=== PATIENT | male | born 1980 | race African-American/Black ===

== ENCOUNTER 2020-08-27 18:22 | Inpatient (IN) ==
[2020-08-27] MEDS ORDERED: HYDROmorphone 2 MG/1 ML VIAL IV STA (19:39)
[2020-08-27] MEDS ORDERED: SODIUM CHLORIDE 0.9% 1,000 ML IV STA (19:45)
[2020-08-27] MEDS ORDERED: ONDANSETRON 4 MG/2 ML VIAL IV STA (19:45)
[2020-08-27] MEDS ORDERED: hydrALAZINE 20 MG/1 ML VIAL IV STA (19:59)
[2020-08-27 20:03] LABS: Basophils % 0.3 % (0.0-0.8); Eosinophils # 0.1 10*3/uL (0.0-0.87); Eosinophils % 0.4 % (0.00-10.9); Hematocrit 40.3 VOL% (42.0-52.0); Immature Granulocytes % 0.5 %; Immature Granulocytes Absolute 0.08 #; Lymphocytes % 13.5 % (21.2-54.2); Mean Corpuscular HGB Conc 32.3 GM/DL (32-36); Mean Corpuscular Volume 82.9 FL (87-102); Mean Platelet Volume 10.4 FL (9.6-12.0); Monocytes % 8.1 % (1.7-12.7); Neutrophils % 77.2 % (38.7-73.9); Platelet Count 272 T/CUMM (130-400); Red Blood Count 4.86 MC/CUMM (3.8-5.5); White Blood Count 14.8 T/CUMM (4-12)
[2020-08-27 20:10] LABS: Calcium 9.3 MG/DL (8.5-10.1); Osmolality,Calculated 271.4 MOS/KG (273-304); Potassium 3.9 MMOL/L (3.5-5.1)
[2020-08-27] MEDS: CLINDAMYCIN INJ 600 MG/50 ML PREMIX IV SCH (20:16)
[2020-08-27] MEDS ORDERED: NICOTINE 21 MG/24 HR PATCH TRANSDERM PRN (20:40)
[2020-08-27] MEDS ORDERED: ONDANSETRON 4 MG/2 ML VIAL IV PRN (20:40)
[2020-08-27] MEDS ORDERED: hydrALAZINE 20 MG/1 ML VIAL IV PRN (20:40)
[2020-08-27] MEDS ORDERED: guaiFENesin/DM ER 600-30 MG TABLET PO PRN (20:40)
[2020-08-27] MEDS ORDERED: ACETAMINOPHEN 325 MG TABLET PO PRN (20:40)
[2020-08-27] MEDS ORDERED: ZALEPLON 5 MG CAPSULE PO PRN (20:40)
[2020-08-27] MEDS ORDERED: DEXTROSE 50% 25 GM/50 ML VIAL IV PRN ×2 (20:40)
[2020-08-27] MEDS ORDERED: GLUCAGON 1 MG VIAL IM PRN ×2 (20:40)
[2020-08-27] MEDS ORDERED: BISACODYL 5 MG TABLET PO PRN (20:40)
[2020-08-27] MEDS ORDERED: PROMETHAZINE 25 MG/1 ML VIAL IM PRN (20:40)
[2020-08-27] MEDS: ENOXAPARIN 40 MG/0.4 ML SYRINGE SUBCUT SCH (21:28)
[2020-08-28] MEDS: INSULIN LISPRO 100 UNIT/ML SUBCUT SCH ×4 (00:35→17:18)
[2020-08-28] MEDS: CLINDAMYCIN INJ 600 MG/50 ML PREMIX IV SCH ×4 (02:44→21:53)
[2020-08-28] MEDS: MORPHINE 4 MG/1 ML VIAL IV PRN ×3 (02:50→21:57)
[2020-08-28 06:33] LABS: Basophils # 0.1 10*3/uL (0.0-0.2); Basophils % 0.4 % (0.0-0.8); Eosinophils # 0.1 10*3/uL (0.0-0.87); Eosinophils % 0.4 % (0.00-10.9); Hematocrit 37.1 VOL% (42.0-52.0); Hemoglobin 12.5 GM/DL (14.0-18.0); Immature Granulocytes % 0.4 %; Immature Granulocytes Absolute 0.06 #; Lymphocytes # 2.1 10*3/uL (1.4-4.0); Lymphocytes % 15.5 % (21.2-54.2); Mean Corpuscular HGB Conc 33.7 GM/DL (32-36); Mean Corpuscular Volume 81.9 FL (87-102); Mean Platelet Volume 10.7 FL (9.6-12.0); Monocytes % 8.4 % (1.7-12.7); Neutrophils % 74.9 % (38.7-73.9); Platelet Count 283 T/CUMM (130-400); Red Blood Count 4.53 MC/CUMM (3.8-5.5); Red Cell Distribution Width 14.2 % (9.3-17.3); White Blood Count 13.4 T/CUMM (4-12)
[2020-08-28 07:00] LABS: Calcium 8.7 MG/DL (8.5-10.1); Osmolality,Calculated 269.5 MOS/KG (273-304); Potassium 3.9 MMOL/L (3.5-5.1)
[2020-08-28] MEDS: PANTOPRAZOLE 40 MG TABLET PO SCH (08:31)
[2020-08-28] MEDS: amLODIPine 5 MG TABLET PO SCH (08:31)
[2020-08-28] MEDS: DULoxetine 30 MG CAPSULE PO SCH ×2 (08:31→21:56)
[2020-08-28] MEDS ORDERED: MIDAZOLAM 2 MG/2 ML VIAL ONE (13:24)
[2020-08-28] MEDS ORDERED: propofoL 200 MG/20 ML VIAL IV ONE (13:49)
[2020-08-28] MEDS ORDERED: ETOMIDATE 40 MG/20 ML VIAL IV ONE (13:49)
[2020-08-28] MEDS ORDERED: ONDANSETRON 4 MG/2 ML VIAL ONE (13:49)
[2020-08-28] MEDS ORDERED: LIDOCAINE 2% 5 ML VIAL ONE (13:49)
[2020-08-28] MEDS ORDERED: SEVOFLURANE 1 UNIT/15 MINUTE INH ONE (13:49)
[2020-08-28] MEDS: ENOXAPARIN 40 MG/0.4 ML SYRINGE SUBCUT SCH (21:56)
[2020-08-29] MEDS: INSULIN LISPRO 100 UNIT/ML SUBCUT SCH ×4 (00:12→17:11)
[2020-08-29] MEDS: CLINDAMYCIN INJ 600 MG/50 ML PREMIX IV SCH ×2 (02:00→08:03)
[2020-08-29 05:12] LABS: Basophils # 0.1 10*3/uL (0.0-0.2); Basophils % 0.4 % (0.0-0.8); Eosinophils # 0.1 10*3/uL (0.0-0.87); Eosinophils % 0.4 % (0.00-10.9); Hematocrit 36.4 VOL% (42.0-52.0); Hemoglobin 11.7 GM/DL (14.0-18.0); Immature Granulocytes % 0.6 %; Immature Granulocytes Absolute 0.08 #; Lymphocytes # 2.1 10*3/uL (1.4-4.0); Lymphocytes % 16.1 % (21.2-54.2); Mean Corpuscular HGB Conc 32.1 GM/DL (32-36); Mean Corpuscular Volume 82.4 FL (87-102); Mean Platelet Volume 9.4 FL (9.6-12.0); Monocytes % 9.7 % (1.7-12.7); Neutrophils % 72.8 % (38.7-73.9); Platelet Count 290 T/CUMM (130-400); Red Blood Count 4.42 MC/CUMM (3.8-5.5); White Blood Count 12.8 T/CUMM (4-12)
[2020-08-29 05:34] LABS: Risk Ratio 6.22
[2020-08-29 05:39] LABS: Albumin 2.8 G/DL (3.4-5.0); Calcium 8.9 MG/DL (8.5-10.1); Osmolality,Calculated 266.8 MOS/KG (273-304); Potassium 3.9 MMOL/L (3.5-5.1); Total Protein 7.7 G/DL (6.4-8.2)
[2020-08-29] MEDS: PANTOPRAZOLE 40 MG TABLET PO SCH (08:02)
[2020-08-29] MEDS: DULoxetine 30 MG CAPSULE PO SCH ×2 (08:02→21:13)
[2020-08-29] MEDS: amLODIPine 5 MG TABLET PO SCH (08:03)
[2020-08-29] MEDS: MORPHINE 4 MG/1 ML VIAL IV PRN ×2 (08:46→21:17)
[2020-08-29] MEDS: LEVOFLOXACIN INJ 750 MG/150 ML PREMIX IV SCH (15:58)
[2020-08-29] MEDS: SODIUM CHLORIDE 0.9% 1,000 ML IV SCH (15:58)
[2020-08-29] MEDS: ENOXAPARIN 40 MG/0.4 ML SYRINGE SUBCUT SCH (21:17)
[2020-08-30] MEDS: INSULIN LISPRO 100 UNIT/ML SUBCUT SCH ×4 (00:42→22:22)
[2020-08-30] MEDS: MORPHINE 4 MG/1 ML VIAL IV PRN ×4 (04:44→22:53)
[2020-08-30 05:11] LABS: Basophils # 0.1 10*3/uL (0.0-0.2); Basophils % 0.5 % (0.0-0.8); Eosinophils # 0.2 10*3/uL (0.0-0.87); Eosinophils % 1.8 % (0.00-10.9); Hematocrit 35.7 VOL% (42.0-52.0); Immature Granulocytes % 0.6 %; Immature Granulocytes Absolute 0.06 #; Lymphocytes % 20.1 % (21.2-54.2); Mean Corpuscular HGB Conc 33.6 GM/DL (32-36); Mean Corpuscular Volume 81.1 FL (87-102); Mean Platelet Volume 9.6 FL (9.6-12.0); Monocytes % 8.2 % (1.7-12.7); Neutrophils % 68.8 % (38.7-73.9); Platelet Count 311 T/CUMM (130-400); Red Cell Distribution Width 14.1 % (9.3-17.3); White Blood Count 9.9 T/CUMM (4-12)
[2020-08-30 05:38] LABS: Calcium 8.8 MG/DL (8.5-10.1); Osmolality,Calculated 269.5 MOS/KG (273-304); Potassium 3.8 MMOL/L (3.5-5.1)
[2020-08-30] MEDS: DULoxetine 30 MG CAPSULE PO SCH ×2 (08:55→21:07)
[2020-08-30] MEDS: amLODIPine 5 MG TABLET PO SCH (10:58)
[2020-08-30] MEDS: PANTOPRAZOLE 40 MG TABLET PO SCH (10:58)
[2020-08-30] MEDS: SODIUM CHLORIDE 0.9% 1,000 ML IV SCH (13:16)
[2020-08-30] MEDS: LEVOFLOXACIN INJ 750 MG/150 ML PREMIX IV SCH (14:06)
[2020-08-30] MEDS ORDERED: fentaNYL 100 MCG/2 ML VIAL ONE (14:29)
[2020-08-30] MEDS ORDERED: MIDAZOLAM 2 MG/2 ML VIAL ONE (14:29)
[2020-08-30] MEDS ORDERED: ePHEDrine 50 MG/ML VIAL ONE (14:56)
[2020-08-30] MEDS ORDERED: LIDOCAINE 2% 5 ML VIAL ONE (15:14)
[2020-08-30] MEDS ORDERED: ONDANSETRON 4 MG/2 ML VIAL ONE (15:14)
[2020-08-30] MEDS ORDERED: propofoL 200 MG/20 ML VIAL IV ONE (15:14)
[2020-08-30] MEDS: ENOXAPARIN 40 MG/0.4 ML SYRINGE SUBCUT SCH (21:07)
[2020-08-30] MEDS: levETIRAcetam 500 MG TABLET PO SCH (21:07)
[2020-08-30] MEDS: diphenhydrAMINE CAP 25 MG CAPSULE PO PRN (22:49)
[2020-08-31] MEDS: INSULIN LISPRO 100 UNIT/ML SUBCUT SCH ×4 (00:55→17:23)
[2020-08-31 06:50] LABS: Basophils % 0.4 % (0.0-0.8); Eosinophils # 0.2 10*3/uL (0.0-0.87); Eosinophils % 2.3 % (0.00-10.9); Hematocrit 34.9 VOL% (42.0-52.0); Hemoglobin 11.2 GM/DL (14.0-18.0); Immature Granulocytes % 0.8 %; Immature Granulocytes Absolute 0.07 #; Lymphocytes % 21.8 % (21.2-54.2); Mean Corpuscular HGB Conc 32.1 GM/DL (32-36); Mean Corpuscular Volume 83.1 FL (87-102); Mean Platelet Volume 9.8 FL (9.6-12.0); Monocytes % 7.6 % (1.7-12.7); Neutrophils % 67.1 % (38.7-73.9); Platelet Count 356 T/CUMM (130-400); Red Cell Distribution Width 14.4 % (9.3-17.3)
[2020-08-31 07:03] LABS: Calcium 8.7 MG/DL (8.5-10.1); Osmolality,Calculated 276.1 MOS/KG (273-304)
[2020-08-31 07:15] LABS: Eosinophils 4 % (0-10); Lymphocytes 26 % (20-55); Platelet Estimate Adequate; Segmented Neutrophils 68 % (50-85); Total Cells Counted 100
[2020-08-31] MEDS: DULoxetine 30 MG CAPSULE PO SCH ×2 (09:00→21:43)
[2020-08-31] MEDS: levETIRAcetam 500 MG TABLET PO SCH ×2 (09:00→21:43)
[2020-08-31] MEDS: PANTOPRAZOLE 40 MG TABLET PO SCH (09:00)
[2020-08-31] MEDS: amLODIPine 5 MG TABLET PO SCH (09:00)
[2020-08-31] MEDS: MORPHINE 4 MG/1 ML VIAL IV PRN ×2 (11:33→21:45)
[2020-08-31] MEDS: LEVOFLOXACIN INJ 750 MG/150 ML PREMIX IV SCH (13:22)
[2020-08-31] MEDS: diphenhydrAMINE CAP 25 MG CAPSULE PO PRN (17:23)
[2020-08-31] MEDS: SODIUM CHLORIDE 0.9% 1,000 ML IV SCH (18:46)
[2020-08-31] MEDS: ENOXAPARIN 40 MG/0.4 ML SYRINGE SUBCUT SCH (21:43)
[2020-09-01] MEDS: INSULIN LISPRO 100 UNIT/ML SUBCUT SCH ×2 (00:59→06:38)
[2020-09-01] MEDS: SODIUM CHLORIDE 0.9% 1,000 ML IV SCH (02:29)
[2020-09-01] MEDS: MORPHINE 4 MG/1 ML VIAL IV PRN (02:33)
[2020-09-01 05:06] LABS: Basophils # 0.1 10*3/uL (0.0-0.2); Basophils % 0.6 % (0.0-0.8); Eosinophils # 0.2 10*3/uL (0.0-0.87); Eosinophils % 2.3 % (0.00-10.9); Hemoglobin 11.5 GM/DL (14.0-18.0); Immature Granulocytes % 0.9 %; Immature Granulocytes Absolute 0.09 #; Lymphocytes % 30.1 % (21.2-54.2); Mean Corpuscular HGB Conc 31.9 GM/DL (32-36); Mean Corpuscular Volume 84.1 FL (87-102); Mean Platelet Volume 9.7 FL (9.6-12.0); Neutrophils % 59.1 % (38.7-73.9); Platelet Count 371 T/CUMM (130-400); Red Blood Count 4.28 MC/CUMM (3.8-5.5); Red Cell Distribution Width 14.3 % (9.3-17.3); White Blood Count 9.8 T/CUMM (4-12)
[2020-09-01 05:32] LABS: Calcium 8.6 MG/DL (8.5-10.1); Osmolality,Calculated 275.1 MOS/KG (273-304)
[2020-09-01 05:33] LABS: Eosinophils 2 % (0-10); Hypochromasia Slight; Lymphocytes 27 % (20-55); Microcytosis Slight; Platelet Estimate Adequate; Segmented Neutrophils 65 % (50-85); Total Cells Counted 100
[2020-09-01] MEDS: DULoxetine 30 MG CAPSULE PO SCH (08:47)
[2020-09-01] MEDS: PANTOPRAZOLE 40 MG TABLET PO SCH (08:47)
[2020-09-01] MEDS: amLODIPine 5 MG TABLET PO SCH (09:21)
[2020-09-01] MEDS: levETIRAcetam 500 MG TABLET PO SCH (09:21)
[2020-09-01 11:19] VITALS: BP 147/76
== END 2020-09-01 12:20 | disposition home health service (06) | DRG 240 ==
LOC: N.ED 18:22 → N.EDINP 20:41 → SUATTDRO 20:41 → N.EDINP 21:33 → N.3E 21:53
PROVIDERS: ADMIT Internal Medicine; ATTEND Family Medicine

== ENCOUNTER 2020-10-18 03:04 | Inpatient (IN) ==
[2020-10-18] MEDS ORDERED: ONDANSETRON 4 MG/2 ML VIAL ONE (04:26)
[2020-10-18] MEDS ORDERED: HYDROmorphone 2 MG/1 ML VIAL ONE (04:26)
[2020-10-18] MEDS ORDERED: ONDANSETRON 4 MG/2 ML VIAL IV STA (04:29)
[2020-10-18] MEDS ORDERED: HYDROmorphone 2 MG/1 ML VIAL IV STA (04:29)
[2020-10-18] MEDS ORDERED: PROMETHAZINE 25 MG/1 ML VIAL ONE (04:57)
[2020-10-18] MEDS ORDERED: GLUCAGON 1 MG VIAL IM PRN (05:01)
[2020-10-18] MEDS ORDERED: DEXTROSE 50% 25 GM/50 ML VIAL IV PRN (05:01)
[2020-10-18] MEDS ORDERED: ACETAMINOPHEN 325 MG TABLET PO PRN (05:01)
[2020-10-18] MEDS ORDERED: CLINDAMYCIN INJ 600 MG/50 ML PREMIX IV SCH (06:00)
[2020-10-18] MEDS ORDERED: PROMETHAZINE 25 MG/1 ML VIAL IM ONE (06:02)
[2020-10-18] MEDS: SODIUM CHLORIDE 0.9% 1,000 ML IV SCH ×3 (06:33→21:31)
[2020-10-18] MEDS: INSULIN REGULAR 100 UNIT/ML SUBCUT SCH ×3 (06:38→17:29)
[2020-10-18] MEDS: PIPERACILLIN/TAZOBACTAM 3,375 MG in SODIUM CHLORIDE 0.9% 100 ML IV SCH ×3 (08:17→22:41)
[2020-10-18 08:23] LABS: Basophils % 0.4 % (0.0-0.8); Eosinophils % 0.3 % (0.00-10.9); Hematocrit 35.3 VOL% (42.0-52.0); Hemoglobin 11.1 GM/DL (14.0-18.0); Immature Granulocytes % 0.4 %; Immature Granulocytes Absolute 0.03 #; Lymphocytes # 1.7 10*3/uL (1.4-4.0); Lymphocytes % 22.3 % (21.2-54.2); Mean Corpuscular HGB Conc 31.4 GM/DL (32-36); Mean Corpuscular Volume 82.1 FL (87-102); Mean Platelet Volume 9.2 FL (9.6-12.0); Monocytes % 7.2 % (1.7-12.7); Neutrophils % 69.4 % (38.7-73.9); Platelet Count 358 T/CUMM (130-400); Red Cell Distribution Width 13.8 % (9.3-17.3); White Blood Count 7.6 T/CUMM (4-12)
[2020-10-18 08:50] LABS: Calcium 8.9 MG/DL (8.5-10.1); Potassium 4.1 MMOL/L (3.5-5.1)
[2020-10-18] MEDS: INSULIN GLARGINE 100 UNIT/ML SUBCUT SCH ×2 (10:10→21:31)
[2020-10-18] MEDS: PANTOPRAZOLE 40 MG VIAL IV SCH (10:10)
[2020-10-18] MEDS: amLODIPine 5 MG TABLET PO SCH (10:11)
[2020-10-18] MEDS: PREGABALIN 75 MG CAPSULE PO SCH ×2 (10:12→21:31)
[2020-10-18] MEDS: DULoxetine 30 MG CAPSULE PO SCH ×2 (10:12→21:31)
[2020-10-18] MEDS: levETIRAcetam 500 MG TABLET PO SCH ×2 (10:12→21:31)
[2020-10-18] MEDS: fentaNYL 100 MCG/HR PATCH TRANSDERM SCH (10:12)
[2020-10-18] MEDS: ONDANSETRON 4 MG/2 ML VIAL IV PRN (10:18)
[2020-10-18] MEDS: ENOXAPARIN 40 MG/0.4 ML SYRINGE SUBCUT SCH (22:41)
[2020-10-18] MEDS: HYDROmorphone 2 MG/1 ML VIAL IV PRN (22:48)
[2020-10-19] MEDS: INSULIN REGULAR 100 UNIT/ML SUBCUT SCH ×4 (00:29→17:46)
[2020-10-19 05:18] LABS: Basophils % 0.4 % (0.0-0.8); Eosinophils # 0.3 10*3/uL (0.0-0.87); Eosinophils % 3.9 % (0.00-10.9); Hemoglobin 10.5 GM/DL (14.0-18.0); Immature Granulocytes % 0.1 %; Immature Granulocytes Absolute 0.01 #; Lymphocytes # 2.9 10*3/uL (1.4-4.0); Lymphocytes % 42.9 % (21.2-54.2); Mean Corpuscular HGB Conc 30.9 GM/DL (32-36); Mean Corpuscular Volume 83.3 FL (87-102); Mean Platelet Volume 9.4 FL (9.6-12.0); Monocytes % 9.1 % (1.7-12.7); Neutrophils % 43.6 % (38.7-73.9); Platelet Count 345 T/CUMM (130-400); Red Blood Count 4.08 MC/CUMM (3.8-5.5); Red Cell Distribution Width 13.7 % (9.3-17.3); White Blood Count 6.7 T/CUMM (4-12)
[2020-10-19 05:44] LABS: Bilirubin,Total 0.5 MG/DL (0.20-1.00); Calcium 8.3 MG/DL (8.5-10.1); Osmolality,Calculated 276.3 MOS/KG (273-304); Potassium 3.9 MMOL/L (3.5-5.1); Total Protein 7.3 G/DL (6.4-8.2)
[2020-10-19 05:53] LABS: Eosinophils 4 % (0-10); Hypochromasia 1+; Lymphocytes 43 % (20-55); Microcytosis 1+; Platelet Estimate Adequate; Segmented Neutrophils 47 % (50-85); Total Cells Counted 100
[2020-10-19 05:54] LABS: Atypical Lymphocytes Few
[2020-10-19] MEDS: SODIUM CHLORIDE 0.9% 1,000 ML IV SCH ×2 (05:54→22:19)
[2020-10-19] MEDS: PIPERACILLIN/TAZOBACTAM 3,375 MG in SODIUM CHLORIDE 0.9% 100 ML IV SCH ×2 (06:23→15:25)
[2020-10-19] MEDS: HYDROmorphone 2 MG/1 ML VIAL IV PRN ×3 (07:37→21:04)
[2020-10-19] MEDS: ONDANSETRON 4 MG/2 ML VIAL IV PRN (07:42)
[2020-10-19] MEDS: INSULIN GLARGINE 100 UNIT/ML SUBCUT SCH ×2 (08:24→22:06)
[2020-10-19] MEDS: DULoxetine 30 MG CAPSULE PO SCH ×2 (08:24→20:57)
[2020-10-19] MEDS: PREGABALIN 75 MG CAPSULE PO SCH ×2 (08:24→20:57)
[2020-10-19] MEDS: levETIRAcetam 500 MG TABLET PO SCH ×2 (08:25→20:57)
[2020-10-19] MEDS: PANTOPRAZOLE 40 MG VIAL IV SCH (08:25)
[2020-10-19] MEDS: amLODIPine 5 MG TABLET PO SCH (08:25)
[2020-10-19] MEDS: diphenhydrAMINE CAP 25 MG CAPSULE PO PRN ×2 (12:33→20:57)
[2020-10-19] MEDS: SODIUM HYPOCHLORITE 0.25% IRRIG 473 ML BOTTLE TOP SCH (12:46)
[2020-10-20] MEDS: ENOXAPARIN 40 MG/0.4 ML SYRINGE SUBCUT SCH ×2 (00:03→23:28)
[2020-10-20] MEDS: PIPERACILLIN/TAZOBACTAM 3,375 MG in SODIUM CHLORIDE 0.9% 100 ML IV SCH ×4 (00:04→23:28)
[2020-10-20] MEDS: INSULIN REGULAR 100 UNIT/ML SUBCUT SCH ×4 (01:56→17:22)
[2020-10-20] MEDS: HYDROmorphone 2 MG/1 ML VIAL IV PRN ×4 (02:53→23:27)
[2020-10-20] MEDS: diphenhydrAMINE CAP 25 MG CAPSULE PO PRN ×2 (07:44→18:00)
[2020-10-20] MEDS: ONDANSETRON 4 MG/2 ML VIAL IV PRN (07:44)
[2020-10-20] MEDS: amLODIPine 5 MG TABLET PO SCH (08:16)
[2020-10-20] MEDS: levETIRAcetam 500 MG TABLET PO SCH ×2 (08:16→20:14)
[2020-10-20] MEDS: SODIUM HYPOCHLORITE 0.25% IRRIG 473 ML BOTTLE TOP SCH (08:17)
[2020-10-20] MEDS: INSULIN GLARGINE 100 UNIT/ML SUBCUT SCH ×2 (08:17→22:49)
[2020-10-20] MEDS: DULoxetine 30 MG CAPSULE PO SCH ×2 (08:17→20:14)
[2020-10-20] MEDS: PANTOPRAZOLE 40 MG VIAL IV SCH (08:18)
[2020-10-20] MEDS: PREGABALIN 75 MG CAPSULE PO SCH ×2 (08:18→20:14)
[2020-10-20] MEDS ORDERED: LIDOCAINE 1% 20 ML VIAL ONE (10:51)
[2020-10-20] MEDS ORDERED: fentaNYL 100 MCG/2 ML VIAL ONE (11:28)
[2020-10-20] MEDS ORDERED: MIDAZOLAM 2 MG/2 ML VIAL ONE (11:28)
[2020-10-20] MEDS ORDERED: LIDOCAINE 2% 5 ML VIAL ONE (11:53)
[2020-10-20] MEDS: SODIUM CHLORIDE 0.9% 1,000 ML IV SCH (13:00)
[2020-10-21] MEDS: INSULIN REGULAR 100 UNIT/ML SUBCUT SCH ×4 (00:48→19:51)
[2020-10-21] MEDS: SODIUM CHLORIDE 0.9% 1,000 ML IV SCH ×3 (02:50→21:55)
[2020-10-21] MEDS: HYDROmorphone 2 MG/1 ML VIAL IV PRN ×3 (05:19→20:04)
[2020-10-21] MEDS: PIPERACILLIN/TAZOBACTAM 3,375 MG in SODIUM CHLORIDE 0.9% 100 ML IV SCH ×3 (06:14→23:53)
[2020-10-21] MEDS: DULoxetine 30 MG CAPSULE PO SCH ×2 (11:07→20:05)
[2020-10-21] MEDS: levETIRAcetam 500 MG TABLET PO SCH ×2 (11:07→20:05)
[2020-10-21] MEDS: INSULIN GLARGINE 100 UNIT/ML SUBCUT SCH ×2 (11:09→20:33)
[2020-10-21] MEDS: PREGABALIN 75 MG CAPSULE PO SCH ×2 (11:10→20:05)
[2020-10-21] MEDS: amLODIPine 5 MG TABLET PO SCH (11:10)
[2020-10-21] MEDS: fentaNYL 100 MCG/HR PATCH TRANSDERM SCH (11:19)
[2020-10-21] MEDS: PANTOPRAZOLE 40 MG VIAL IV SCH (11:21)
[2020-10-21] MEDS: SODIUM HYPOCHLORITE 0.25% IRRIG 473 ML BOTTLE TOP SCH (17:12)
[2020-10-21] MEDS: COLLAGENASE OINT 30 GM TUBE TOP SCH (17:19)
[2020-10-21] MEDS: ENOXAPARIN 40 MG/0.4 ML SYRINGE SUBCUT SCH (23:54)
[2020-10-22] MEDS: HYDROmorphone 2 MG/1 ML VIAL IV PRN ×4 (00:04→23:53)
[2020-10-22] MEDS: INSULIN REGULAR 100 UNIT/ML SUBCUT SCH ×4 (01:38→17:04)
[2020-10-22] MEDS: PIPERACILLIN/TAZOBACTAM 3,375 MG in SODIUM CHLORIDE 0.9% 100 ML IV SCH ×3 (06:19→23:54)
[2020-10-22] MEDS: diphenhydrAMINE CAP 25 MG CAPSULE PO PRN ×2 (06:21→13:28)
[2020-10-22] MEDS: PREGABALIN 75 MG CAPSULE PO SCH ×2 (09:02→21:12)
[2020-10-22] MEDS: levETIRAcetam 500 MG TABLET PO SCH ×2 (09:02→21:12)
[2020-10-22] MEDS: amLODIPine 5 MG TABLET PO SCH (09:02)
[2020-10-22] MEDS: DULoxetine 30 MG CAPSULE PO SCH ×2 (09:02→21:12)
[2020-10-22] MEDS: PANTOPRAZOLE 40 MG VIAL IV SCH (09:03)
[2020-10-22] MEDS: SODIUM HYPOCHLORITE 0.25% IRRIG 473 ML BOTTLE TOP SCH (09:04)
[2020-10-22] MEDS: INSULIN GLARGINE 100 UNIT/ML SUBCUT SCH ×2 (09:04→21:12)
[2020-10-22] MEDS: COLLAGENASE OINT 30 GM TUBE TOP SCH (09:04)
[2020-10-22] MEDS: SODIUM CHLORIDE 0.9% 1,000 ML IV SCH ×4 (10:24→15:48)
[2020-10-22] MEDS: ENOXAPARIN 40 MG/0.4 ML SYRINGE SUBCUT SCH (23:53)
[2020-10-23] MEDS: SODIUM CHLORIDE 0.9% 1,000 ML IV SCH ×2 (03:45→11:23)
[2020-10-23 05:27] LABS: Basophils # 0.1 10*3/uL (0.0-0.2); Basophils % 0.8 % (0.0-0.8); Eosinophils # 0.2 10*3/uL (0.0-0.87); Eosinophils % 3.9 % (0.00-10.9); Hemoglobin 11.1 GM/DL (14.0-18.0); Immature Granulocytes % 0.3 %; Immature Granulocytes Absolute 0.02 #; Lymphocytes # 2.4 10*3/uL (1.4-4.0); Lymphocytes % 39.1 % (21.2-54.2); Mean Corpuscular HGB Conc 31.7 GM/DL (32-36); Mean Platelet Volume 9.1 FL (9.6-12.0); Monocytes % 7.6 % (1.7-12.7); Neutrophils % 48.3 % (38.7-73.9); Platelet Count 337 T/CUMM (130-400); Red Blood Count 4.27 MC/CUMM (3.8-5.5); Red Cell Distribution Width 13.9 % (9.3-17.3); White Blood Count 6.2 T/CUMM (4-12)
[2020-10-23 05:49] LABS: Calcium 8.8 MG/DL (8.5-10.1); Osmolality,Calculated 269.8 MOS/KG (273-304)
[2020-10-23] MEDS: PIPERACILLIN/TAZOBACTAM 3,375 MG in SODIUM CHLORIDE 0.9% 100 ML IV SCH ×3 (06:02→23:03)
[2020-10-23 06:09] LABS: Eosinophils 6 % (0-10); Lymphocytes 45 % (20-55); Platelet Estimate Normal; Segmented Neutrophils 39 % (50-85); Total Cells Counted 100
[2020-10-23] MEDS: INSULIN REGULAR 100 UNIT/ML SUBCUT SCH ×4 (06:15→18:23)
[2020-10-23] MEDS: HYDROmorphone 2 MG/1 ML VIAL IV PRN ×2 (08:59→17:34)
[2020-10-23] MEDS: DULoxetine 30 MG CAPSULE PO SCH ×2 (09:01→21:22)
[2020-10-23] MEDS: SODIUM HYPOCHLORITE 0.25% IRRIG 473 ML BOTTLE TOP SCH (09:01)
[2020-10-23] MEDS: amLODIPine 5 MG TABLET PO SCH (09:01)
[2020-10-23] MEDS: levETIRAcetam 500 MG TABLET PO SCH ×2 (09:01→21:22)
[2020-10-23] MEDS: PREGABALIN 75 MG CAPSULE PO SCH ×2 (09:01→21:22)
[2020-10-23] MEDS: PANTOPRAZOLE 40 MG VIAL IV SCH (09:02)
[2020-10-23] MEDS: COLLAGENASE OINT 30 GM TUBE TOP SCH (10:55)
[2020-10-23] MEDS ORDERED: amLODIPine 5 MG TABLET PO ONE (11:17)
[2020-10-23] MEDS: INSULIN GLARGINE 100 UNIT/ML SUBCUT SCH ×2 (11:20→21:21)
[2020-10-23] MEDS ORDERED: hydrALAZINE 25 MG TABLET PO PRN (11:33)
[2020-10-23] MEDS: LOSARTAN 50 MG TABLET PO SCH (12:07)
[2020-10-23] MEDS: diphenhydrAMINE CAP 25 MG CAPSULE PO PRN (12:21)
[2020-10-23] MEDS: DICLOFENAC 1% GEL 100 GM TUBE TOP SCH ×2 (15:40→21:22)
[2020-10-23] MEDS: DOCUSATE/SENNA 50-8.6 MG TABLET PO SCH (21:22)
[2020-10-23] MEDS: ENOXAPARIN 40 MG/0.4 ML SYRINGE SUBCUT SCH (23:03)
[2020-10-24] MEDS: INSULIN REGULAR 100 UNIT/ML SUBCUT SCH ×3 (00:08→12:10)
[2020-10-24] MEDS: PIPERACILLIN/TAZOBACTAM 3,375 MG in SODIUM CHLORIDE 0.9% 100 ML IV SCH (06:03)
[2020-10-24] MEDS ORDERED: LEVOFLOXACIN 500 MG TABLET PO SCH (08:00)
[2020-10-24] MEDS: HYDROmorphone 2 MG/1 ML VIAL IV PRN (08:06)
[2020-10-24] MEDS ORDERED: amLODIPine 5 MG TABLET PO SCH (09:00)
[2020-10-24] MEDS ORDERED: amLODIPine 10 MG TABLET PO SCH (09:00)
[2020-10-24] MEDS ORDERED: PANTOPRAZOLE 40 MG TABLET PO SCH (09:00)
[2020-10-24] MEDS: INSULIN GLARGINE 100 UNIT/ML SUBCUT SCH (09:14)
[2020-10-24] MEDS: DOCUSATE/SENNA 50-8.6 MG TABLET PO SCH (09:15)
[2020-10-24] MEDS: DULoxetine 30 MG CAPSULE PO SCH (09:15)
[2020-10-24] MEDS: LOSARTAN 50 MG TABLET PO SCH (09:16)
[2020-10-24] MEDS: PREGABALIN 75 MG CAPSULE PO SCH (09:16)
[2020-10-24] MEDS: levETIRAcetam 500 MG TABLET PO SCH (09:16)
[2020-10-24] MEDS: SODIUM HYPOCHLORITE 0.25% IRRIG 473 ML BOTTLE TOP SCH (10:02)
[2020-10-24] MEDS: fentaNYL 100 MCG/HR PATCH TRANSDERM SCH (10:02)
[2020-10-24] MEDS: DICLOFENAC 1% GEL 100 GM TUBE TOP SCH (10:03)
[2020-10-24] MEDS: COLLAGENASE OINT 30 GM TUBE TOP SCH (10:03)
[2020-10-24 11:24] VITALS: BP 145/71
[2020-10-24] MEDS ORDERED: CLINDAMYCIN 300 MG CAPSULE PO SCH (12:00)
== END 2020-10-24 12:05 | disposition home health service (06) | DRG 623 ==
LOC: EDBD → EDUNIT# → N.EDINP 03:04 → N.ED 03:04 → N.3E 04:36
PROVIDERS: ADMIT Surgery; ATTEND Surgery

== ENCOUNTER 2020-11-24 11:07 | Inpatient (IN) ==
[2020-11-24] MEDS ORDERED: HYDROmorphone 2 MG/1 ML VIAL IV PRN (11:45)
[2020-11-24] MEDS ORDERED: DEXTROSE 50% 25 GM/50 ML VIAL IV PRN (11:45)
[2020-11-24] MEDS ORDERED: PROMETHAZINE 25 MG/1 ML VIAL IM PRN (11:45)
[2020-11-24] MEDS ORDERED: ACETAMINOPHEN 325 MG TABLET PO PRN (11:45)
[2020-11-24] MEDS ORDERED: GLUCAGON 1 MG VIAL IM PRN (11:45)
[2020-11-24 12:22] LABS: Basophils % 0.5 % (0.0-0.8); Eosinophils # 0.1 10*3/uL (0.0-0.87); Eosinophils % 0.8 % (0.00-10.9); Hematocrit 37.3 VOL% (42.0-52.0); Hemoglobin 11.8 GM/DL (14.0-18.0); Immature Granulocytes % 0.5 %; Immature Granulocytes Absolute 0.04 #; Lymphocytes # 2.1 10*3/uL (1.4-4.0); Lymphocytes % 24.6 % (21.2-54.2); Mean Corpuscular HGB Conc 31.6 GM/DL (32-36); Mean Corpuscular Volume 81.4 FL (87-102); Mean Platelet Volume 9.6 FL (9.6-12.0); Monocytes % 6.6 % (1.7-12.7); Platelet Count 324 T/CUMM (130-400); Red Blood Count 4.58 MC/CUMM (3.8-5.5); Red Cell Distribution Width 15.3 % (9.3-17.3); White Blood Count 8.5 T/CUMM (4-12)
[2020-11-24 12:38] LABS: Calcium 9.2 MG/DL (8.5-10.1); Osmolality,Calculated 276.2 MOS/KG (273-304); Potassium 4.3 MMOL/L (3.5-5.1)
[2020-11-24] MEDS: LEVOFLOXACIN INJ 750 MG/150 ML PREMIX IV SCH (14:14)
[2020-11-24] MEDS: LACTATED RINGERS 1,000 ML IV SCH (14:14)
[2020-11-24] MEDS: INSULIN REGULAR 100 UNIT/ML SUBCUT SCH ×2 (18:29→20:46)
[2020-11-24] MEDS: metroNIDAZOLE INJ 500 MG/100 ML PREMIX IV SCH (20:39)
[2020-11-24] MEDS: fentaNYL 100 MCG/HR PATCH TRANSDERM SCH (21:52)
[2020-11-24] MEDS: levETIRAcetam 500 MG TABLET PO SCH (21:53)
[2020-11-25] MEDS: LACTATED RINGERS 1,000 ML IV SCH ×3 (00:10→06:11)
[2020-11-25] MEDS: metroNIDAZOLE INJ 500 MG/100 ML PREMIX IV SCH ×3 (04:34→21:12)
[2020-11-25 05:02] LABS: Basophils # 0.1 10*3/uL (0.0-0.2); Basophils % 0.8 % (0.0-0.8); Eosinophils # 0.2 10*3/uL (0.0-0.87); Hematocrit 35.6 VOL% (42.0-52.0); Hemoglobin 11.1 GM/DL (14.0-18.0); Immature Granulocytes % 0.4 %; Immature Granulocytes Absolute 0.03 #; Lymphocytes # 3.2 10*3/uL (1.4-4.0); Lymphocytes % 40.3 % (21.2-54.2); Mean Corpuscular HGB Conc 31.2 GM/DL (32-36); Mean Corpuscular Volume 81.8 FL (87-102); Mean Platelet Volume 9.8 FL (9.6-12.0); Monocytes % 9.6 % (1.7-12.7); Neutrophils % 46.9 % (38.7-73.9); Platelet Count 302 T/CUMM (130-400); Red Blood Count 4.35 MC/CUMM (3.8-5.5); White Blood Count 7.9 T/CUMM (4-12)
[2020-11-25 05:31] LABS: Band Neutrophils 1 % (0-10); Hypochromasia 1+; Lymphocytes 41 % (20-55); Microcytosis 1+; Platelet Estimate Adequate; Segmented Neutrophils 49 % (50-85); Total Cells Counted 100
[2020-11-25 05:32] LABS: Calcium 9.1 MG/DL (8.5-10.1); Osmolality,Calculated 271.1 MOS/KG (273-304); Potassium 3.7 MMOL/L (3.5-5.1)
[2020-11-25] MEDS ORDERED: propofoL 200 MG/20 ML VIAL IV ONE (08:47)
[2020-11-25] MEDS ORDERED: MIDAZOLAM 2 MG/2 ML VIAL ONE (08:47)
[2020-11-25] MEDS ORDERED: LIDOCAINE 2% 5 ML VIAL ONE (08:47)
[2020-11-25] MEDS ORDERED: fentaNYL 100 MCG/2 ML VIAL ONE (08:47)
[2020-11-25] MEDS ORDERED: ePHEDrine 50 MG/ML VIAL ONE (09:14)
[2020-11-25] MEDS ORDERED: SEVOFLURANE 1 UNIT/15 MINUTE INH ONE (10:10)
[2020-11-25] MEDS ORDERED: PHENYLEPHRINE 1 MG/10 ML SYRINGE IV ONE (10:10)
[2020-11-25] MEDS ORDERED: ONDANSETRON 4 MG/2 ML VIAL IV PRN (10:32)
[2020-11-25] MEDS: HYDROmorphone 2 MG/1 ML VIAL IV PRN ×5 (10:37→23:50)
[2020-11-25] MEDS ORDERED: fentaNYL 100 MCG/HR PATCH TRANSDERM SCH (10:51)
[2020-11-25] MEDS ORDERED: diphenhydrAMINE 50 MG/1 ML VIAL IV ONE (11:00)
[2020-11-25] MEDS ORDERED: diphenhydrAMINE 50 MG/1 ML VIAL ONE (11:02)
[2020-11-25] MEDS: ENOXAPARIN 40 MG/0.4 ML SYRINGE SUBCUT SCH (11:32)
[2020-11-25] MEDS: INSULIN REGULAR 100 UNIT/ML SUBCUT SCH ×4 (11:32→21:29)
[2020-11-25] MEDS: levETIRAcetam 500 MG TABLET PO SCH ×2 (12:49→21:13)
[2020-11-25] MEDS: PANTOPRAZOLE 40 MG TABLET PO SCH (12:50)
[2020-11-25] MEDS: diphenhydrAMINE CAP 25 MG CAPSULE PO PRN (15:48)
[2020-11-25] MEDS: LEVOFLOXACIN INJ 750 MG/150 ML PREMIX IV SCH (15:49)
[2020-11-25] MEDS ORDERED: NON-FORMULARY MEDICATION (Levetiracetam [Keppra] 1,000 mg Tablet) PO SCH (21:00)
[2020-11-25] MEDS: DULoxetine 30 MG CAPSULE PO SCH (21:13)
[2020-11-25] MEDS: PREGABALIN 75 MG CAPSULE PO SCH (21:14)
[2020-11-25] MEDS: INSULIN GLARGINE 100 UNIT/ML SUBCUT SCH (21:29)
[2020-11-26] MEDS: LACTATED RINGERS 1,000 ML IV SCH ×4 (03:00→23:05)
[2020-11-26 05:59] LABS: Basophils % 0.4 % (0.0-0.8); Eosinophils # 0.1 10*3/uL (0.0-0.87); Eosinophils % 0.7 % (0.00-10.9); Hematocrit 33.3 VOL% (42.0-52.0); Hemoglobin 10.5 GM/DL (14.0-18.0); Immature Granulocytes % 0.4 %; Immature Granulocytes Absolute 0.04 #; Lymphocytes # 1.8 10*3/uL (1.4-4.0); Lymphocytes % 18.4 % (21.2-54.2); Mean Corpuscular HGB Conc 31.5 GM/DL (32-36); Mean Corpuscular Volume 81.2 FL (87-102); Monocytes % 7.5 % (1.7-12.7); Neutrophils % 72.6 % (38.7-73.9); Platelet Count 289 T/CUMM (130-400)
[2020-11-26] MEDS: metroNIDAZOLE INJ 500 MG/100 ML PREMIX IV SCH ×3 (06:22→21:42)
[2020-11-26] MEDS: PANTOPRAZOLE 40 MG TABLET PO SCH (06:23)
[2020-11-26 06:25] LABS: Calcium 8.8 MG/DL (8.5-10.1); Osmolality,Calculated 268.7 MOS/KG (273-304); Potassium 3.9 MMOL/L (3.5-5.1)
[2020-11-26] MEDS: HYDROmorphone 2 MG/1 ML VIAL IV PRN ×3 (06:40→21:45)
[2020-11-26] MEDS: ENOXAPARIN 40 MG/0.4 ML SYRINGE SUBCUT SCH (08:09)
[2020-11-26] MEDS: DULoxetine 30 MG CAPSULE PO SCH ×2 (08:52→21:41)
[2020-11-26] MEDS: amLODIPine 5 MG TABLET PO SCH (08:53)
[2020-11-26] MEDS: levETIRAcetam 500 MG TABLET PO SCH ×2 (08:53→21:41)
[2020-11-26] MEDS: INSULIN REGULAR 100 UNIT/ML SUBCUT SCH ×4 (08:53→23:47)
[2020-11-26] MEDS: PREGABALIN 75 MG CAPSULE PO SCH ×2 (08:53→21:41)
[2020-11-26] MEDS: INSULIN GLARGINE 100 UNIT/ML SUBCUT SCH ×2 (08:54→23:47)
[2020-11-26] MEDS: diphenhydrAMINE CAP 25 MG CAPSULE PO PRN (13:51)
[2020-11-26] MEDS: LEVOFLOXACIN INJ 750 MG/150 ML PREMIX IV SCH (15:06)
[2020-11-26] MEDS: ONDANSETRON 4 MG/2 ML VIAL IV PRN (21:50)
[2020-11-27] MEDS: metroNIDAZOLE INJ 500 MG/100 ML PREMIX IV SCH ×3 (06:30→20:58)
[2020-11-27] MEDS: LACTATED RINGERS 1,000 ML IV SCH ×3 (07:52→23:10)
[2020-11-27] MEDS: PREGABALIN 75 MG CAPSULE PO SCH ×2 (09:14→20:59)
[2020-11-27] MEDS: HYDROmorphone 2 MG/1 ML VIAL IV PRN ×3 (09:14→21:00)
[2020-11-27] MEDS: levETIRAcetam 500 MG TABLET PO SCH ×2 (09:14→20:59)
[2020-11-27] MEDS: amLODIPine 5 MG TABLET PO SCH (09:15)
[2020-11-27] MEDS: PANTOPRAZOLE 40 MG TABLET PO SCH (09:15)
[2020-11-27] MEDS: fentaNYL 100 MCG/HR PATCH TRANSDERM SCH (09:24)
[2020-11-27] MEDS: ENOXAPARIN 40 MG/0.4 ML SYRINGE SUBCUT SCH (09:27)
[2020-11-27] MEDS: INSULIN GLARGINE 100 UNIT/ML SUBCUT SCH ×2 (09:27→21:01)
[2020-11-27] MEDS: INSULIN REGULAR 100 UNIT/ML SUBCUT SCH ×4 (09:27→20:59)
[2020-11-27] MEDS: LINEZOLID INJ 600 MG/300 ML PREMIX IV SCH ×2 (11:38→23:42)
[2020-11-27] MEDS: LEVOFLOXACIN INJ 750 MG/150 ML PREMIX IV SCH (15:21)
[2020-11-27] MEDS: diphenhydrAMINE CAP 25 MG CAPSULE PO PRN (23:42)
[2020-11-28] MEDS: HYDROmorphone 2 MG/1 ML VIAL IV PRN ×4 (06:08→18:37)
[2020-11-28] MEDS: PANTOPRAZOLE 40 MG TABLET PO SCH (06:08)
[2020-11-28] MEDS: metroNIDAZOLE INJ 500 MG/100 ML PREMIX IV SCH (06:08)
[2020-11-28] MEDS: ENOXAPARIN 40 MG/0.4 ML SYRINGE SUBCUT SCH (09:29)
[2020-11-28] MEDS: amLODIPine 5 MG TABLET PO SCH (09:30)
[2020-11-28] MEDS: LINEZOLID INJ 600 MG/300 ML PREMIX IV SCH ×2 (09:31→21:40)
[2020-11-28] MEDS: levETIRAcetam 500 MG TABLET PO SCH ×2 (09:31→21:35)
[2020-11-28] MEDS: PREGABALIN 75 MG CAPSULE PO SCH ×2 (09:31→21:36)
[2020-11-28] MEDS: INSULIN REGULAR 100 UNIT/ML SUBCUT SCH ×4 (09:31→21:36)
[2020-11-28] MEDS: INSULIN GLARGINE 100 UNIT/ML SUBCUT SCH ×2 (09:32→21:36)
[2020-11-28] MEDS ORDERED: SODIUM HYPOCHLORITE 0.25% IRR 1 APPLIC in IV BAG 1 EACH IRRIG PRN (10:17)
[2020-11-28] MEDS: diphenhydrAMINE CAP 25 MG CAPSULE PO PRN (13:15)
[2020-11-28] MEDS: LACTATED RINGERS 1,000 ML IV SCH ×2 (15:24→15:37)
[2020-11-29] MEDS: HYDROmorphone 2 MG/1 ML VIAL IV PRN ×3 (01:02→21:44)
[2020-11-29] MEDS: LACTATED RINGERS 1,000 ML IV SCH ×2 (02:11→06:33)
[2020-11-29] MEDS: PANTOPRAZOLE 40 MG TABLET PO SCH ×2 (07:00→10:35)
[2020-11-29] MEDS: LINEZOLID INJ 600 MG/300 ML PREMIX IV SCH ×2 (10:34→21:43)
[2020-11-29] MEDS: INSULIN GLARGINE 100 UNIT/ML SUBCUT SCH ×2 (10:35→21:44)
[2020-11-29] MEDS: ENOXAPARIN 40 MG/0.4 ML SYRINGE SUBCUT SCH (10:35)
[2020-11-29] MEDS: amLODIPine 5 MG TABLET PO SCH (10:35)
[2020-11-29] MEDS: INSULIN REGULAR 100 UNIT/ML SUBCUT SCH ×4 (10:35→21:44)
[2020-11-29] MEDS: PREGABALIN 75 MG CAPSULE PO SCH ×2 (10:36→21:46)
[2020-11-29] MEDS: levETIRAcetam 500 MG TABLET PO SCH ×2 (10:36→21:45)
[2020-11-30] MEDS: HYDROmorphone 2 MG/1 ML VIAL IV PRN ×5 (03:00→21:14)
[2020-11-30] MEDS: LACTATED RINGERS 1,000 ML IV SCH ×4 (03:01→21:09)
[2020-11-30] MEDS: PANTOPRAZOLE 40 MG TABLET PO SCH (05:31)
[2020-11-30] MEDS: levETIRAcetam 500 MG TABLET PO SCH ×2 (09:01→21:08)
[2020-11-30] MEDS: INSULIN REGULAR 100 UNIT/ML SUBCUT SCH ×4 (09:03→21:08)
[2020-11-30] MEDS: INSULIN GLARGINE 100 UNIT/ML SUBCUT SCH ×2 (09:03→21:15)
[2020-11-30] MEDS: amLODIPine 5 MG TABLET PO SCH (09:04)
[2020-11-30] MEDS: PREGABALIN 75 MG CAPSULE PO SCH ×2 (09:04→21:08)
[2020-11-30] MEDS: ENOXAPARIN 40 MG/0.4 ML SYRINGE SUBCUT SCH (09:04)
[2020-11-30] MEDS: fentaNYL 100 MCG/HR PATCH TRANSDERM SCH (09:06)
[2020-11-30] MEDS: LINEZOLID INJ 600 MG/300 ML PREMIX IV SCH ×2 (10:37→21:09)
[2020-11-30] MEDS: diphenhydrAMINE CAP 25 MG CAPSULE PO PRN (21:08)
[2020-12-01] MEDS: HYDROmorphone 2 MG/1 ML VIAL IV PRN ×6 (00:24→21:23)
[2020-12-01] MEDS: LACTATED RINGERS 1,000 ML IV SCH ×3 (05:56→16:08)
[2020-12-01] MEDS: diphenhydrAMINE CAP 25 MG CAPSULE PO PRN ×3 (05:57→21:23)
[2020-12-01] MEDS: PANTOPRAZOLE 40 MG TABLET PO SCH (05:57)
[2020-12-01] MEDS: levETIRAcetam 500 MG TABLET PO SCH ×2 (09:21→21:23)
[2020-12-01] MEDS: PREGABALIN 75 MG CAPSULE PO SCH ×2 (09:21→21:23)
[2020-12-01] MEDS: ENOXAPARIN 40 MG/0.4 ML SYRINGE SUBCUT SCH (09:21)
[2020-12-01] MEDS: INSULIN GLARGINE 100 UNIT/ML SUBCUT SCH ×2 (09:22→21:24)
[2020-12-01] MEDS: amLODIPine 5 MG TABLET PO SCH (09:22)
[2020-12-01] MEDS: INSULIN REGULAR 100 UNIT/ML SUBCUT SCH ×4 (09:22→21:24)
[2020-12-01] MEDS: LINEZOLID INJ 600 MG/300 ML PREMIX IV SCH ×2 (09:26→21:17)
[2020-12-02] MEDS: HYDROmorphone 2 MG/1 ML VIAL IV PRN ×6 (00:28→23:40)
[2020-12-02] MEDS: LACTATED RINGERS 1,000 ML IV SCH ×3 (02:00→18:56)
[2020-12-02] MEDS: diphenhydrAMINE CAP 25 MG CAPSULE PO PRN (05:59)
[2020-12-02] MEDS: PANTOPRAZOLE 40 MG TABLET PO SCH (06:00)
[2020-12-02] MEDS: INSULIN REGULAR 100 UNIT/ML SUBCUT SCH ×4 (08:05→22:38)
[2020-12-02] MEDS: LINEZOLID INJ 600 MG/300 ML PREMIX IV SCH ×2 (09:08→20:12)
[2020-12-02] MEDS: levETIRAcetam 500 MG TABLET PO SCH ×2 (09:14→20:13)
[2020-12-02] MEDS: INSULIN GLARGINE 100 UNIT/ML SUBCUT SCH ×2 (09:14→22:39)
[2020-12-02] MEDS: amLODIPine 5 MG TABLET PO SCH (09:15)
[2020-12-02] MEDS: PREGABALIN 75 MG CAPSULE PO SCH ×2 (09:15→20:13)
[2020-12-02] MEDS: ENOXAPARIN 40 MG/0.4 ML SYRINGE SUBCUT SCH (09:17)
[2020-12-02 17:03] LABS: Basophils # 0.1 10*3/uL (0.0-0.2); Basophils % 0.8 % (0.0-0.8); Eosinophils # 0.2 10*3/uL (0.0-0.87); Eosinophils % 2.4 % (0.00-10.9); Hemoglobin 10.4 GM/DL (14.0-18.0); Immature Granulocytes % 1.3 %; Lymphocytes # 2.6 10*3/uL (1.4-4.0); Lymphocytes % 31.9 % (21.2-54.2); Mean Corpuscular HGB Conc 30.6 GM/DL (32-36); Mean Corpuscular Volume 83.3 FL (87-102); Mean Platelet Volume 9.1 FL (9.6-12.0); Monocytes % 9.3 % (1.7-12.7); Neutrophils % 54.3 % (38.7-73.9); Platelet Count 369 T/CUMM (130-400); Red Blood Count 4.08 MC/CUMM (3.8-5.5); Red Cell Distribution Width 15.2 % (9.3-17.3)
[2020-12-02] MEDS: POLYETHYLENE GLYCOL POWDER 17 GM PACK PO SCH (17:05)
[2020-12-02 17:22] LABS: Calcium 8.8 MG/DL (8.5-10.1); Osmolality,Calculated 266.5 MOS/KG (273-304)
[2020-12-02 17:50] LABS: Eosinophils 1 % (0-10); Lymphocytes 34 % (20-55); Segmented Neutrophils 61 % (50-85); Total Cells Counted 100
[2020-12-02 17:51] LABS: Hypochromasia 3+; Platelet Estimate Normal; Polychromasia Slight
[2020-12-03] MEDS: HYDROmorphone 2 MG/1 ML VIAL IV PRN ×5 (03:09→20:47)
[2020-12-03] MEDS: LACTATED RINGERS 1,000 ML IV SCH ×2 (04:56→22:00)
[2020-12-03] MEDS: INSULIN REGULAR 100 UNIT/ML SUBCUT SCH ×4 (08:35→20:45)
[2020-12-03] MEDS: levETIRAcetam 500 MG TABLET PO SCH ×2 (10:53→20:45)
[2020-12-03] MEDS: amLODIPine 5 MG TABLET PO SCH (10:53)
[2020-12-03] MEDS: PREGABALIN 75 MG CAPSULE PO SCH ×2 (10:53→20:45)
[2020-12-03] MEDS: PANTOPRAZOLE 40 MG TABLET PO SCH (10:53)
[2020-12-03] MEDS: POLYETHYLENE GLYCOL POWDER 17 GM PACK PO SCH (10:54)
[2020-12-03] MEDS: INSULIN GLARGINE 100 UNIT/ML SUBCUT SCH ×2 (10:56→22:32)
[2020-12-03] MEDS: ENOXAPARIN 40 MG/0.4 ML SYRINGE SUBCUT SCH (10:56)
[2020-12-03] MEDS: LINEZOLID INJ 600 MG/300 ML PREMIX IV SCH ×2 (11:02→20:46)
[2020-12-03] MEDS: ONDANSETRON 4 MG/2 ML VIAL IV PRN (22:28)
[2020-12-04] MEDS: LACTATED RINGERS 1,000 ML IV SCH ×2 (00:20→12:27)
[2020-12-04] MEDS: HYDROmorphone 2 MG/1 ML VIAL IV PRN ×4 (02:12→18:04)
[2020-12-04] MEDS: PANTOPRAZOLE 40 MG TABLET PO SCH (06:23)
[2020-12-04] MEDS: LINEZOLID INJ 600 MG/300 ML PREMIX IV SCH (10:29)
[2020-12-04] MEDS: levETIRAcetam 500 MG TABLET PO SCH ×2 (10:30→23:48)
[2020-12-04] MEDS: INSULIN GLARGINE 100 UNIT/ML SUBCUT SCH ×2 (10:31→23:48)
[2020-12-04] MEDS: ENOXAPARIN 40 MG/0.4 ML SYRINGE SUBCUT SCH (10:31)
[2020-12-04] MEDS: amLODIPine 5 MG TABLET PO SCH (10:31)
[2020-12-04] MEDS: PREGABALIN 75 MG CAPSULE PO SCH ×2 (10:31→23:48)
[2020-12-04] MEDS: POLYETHYLENE GLYCOL POWDER 17 GM PACK PO SCH (10:33)
[2020-12-04] MEDS: INSULIN REGULAR 100 UNIT/ML SUBCUT SCH ×4 (10:33→23:48)
[2020-12-05] MEDS: HYDROmorphone 2 MG/1 ML VIAL IV PRN ×7 (01:13→22:50)
[2020-12-05] MEDS: LACTATED RINGERS 1,000 ML IV SCH ×3 (01:16→10:26)
[2020-12-05] MEDS: PANTOPRAZOLE 40 MG TABLET PO SCH (06:51)
[2020-12-05] MEDS: levETIRAcetam 500 MG TABLET PO SCH ×2 (10:18→21:44)
[2020-12-05] MEDS: ENOXAPARIN 40 MG/0.4 ML SYRINGE SUBCUT SCH (10:19)
[2020-12-05] MEDS: PREGABALIN 75 MG CAPSULE PO SCH ×2 (10:19→21:43)
[2020-12-05] MEDS: amLODIPine 5 MG TABLET PO SCH (10:19)
[2020-12-05] MEDS: INSULIN GLARGINE 100 UNIT/ML SUBCUT SCH ×2 (10:19→21:44)
[2020-12-05] MEDS: INSULIN REGULAR 100 UNIT/ML SUBCUT SCH ×4 (10:27→21:45)
[2020-12-05] MEDS: POLYETHYLENE GLYCOL POWDER 17 GM PACK PO SCH (10:28)
[2020-12-05] MEDS: amLODIPine 10 MG TABLET PO SCH (15:00)
[2020-12-05] MEDS: SULFAMETHOX/TRIMETHOPRIM 800-160 MG TABLET PO SCH ×2 (18:24→21:44)
[2020-12-05] MEDS: diphenhydrAMINE CAP 25 MG CAPSULE PO PRN (23:40)
[2020-12-06] MEDS: diphenhydrAMINE CAP 25 MG CAPSULE PO PRN (05:39)
[2020-12-06] MEDS: PANTOPRAZOLE 40 MG TABLET PO SCH (05:39)
[2020-12-06] MEDS: HYDROmorphone 2 MG/1 ML VIAL IV PRN ×6 (05:40→21:40)
[2020-12-06] MEDS: INSULIN REGULAR 100 UNIT/ML SUBCUT SCH ×4 (07:24→21:41)
[2020-12-06] MEDS: amLODIPine 10 MG TABLET PO SCH (08:07)
[2020-12-06] MEDS: levETIRAcetam 500 MG TABLET PO SCH ×2 (08:07→21:42)
[2020-12-06] MEDS: SULFAMETHOX/TRIMETHOPRIM 800-160 MG TABLET PO SCH ×2 (08:07→21:42)
[2020-12-06] MEDS: PREGABALIN 75 MG CAPSULE PO SCH ×2 (08:07→21:42)
[2020-12-06] MEDS: ENOXAPARIN 40 MG/0.4 ML SYRINGE SUBCUT SCH (08:07)
[2020-12-06] MEDS: INSULIN GLARGINE 100 UNIT/ML SUBCUT SCH ×2 (08:07→21:41)
[2020-12-06] MEDS: POLYETHYLENE GLYCOL POWDER 17 GM PACK PO SCH (08:08)
[2020-12-07] MEDS: HYDROmorphone 2 MG/1 ML VIAL IV PRN ×7 (02:10→21:54)
[2020-12-07] MEDS: PANTOPRAZOLE 40 MG TABLET PO SCH (05:47)
[2020-12-07] MEDS: SULFAMETHOX/TRIMETHOPRIM 800-160 MG TABLET PO SCH (09:21)
[2020-12-07] MEDS: ENOXAPARIN 40 MG/0.4 ML SYRINGE SUBCUT SCH (09:21)
[2020-12-07] MEDS: amLODIPine 10 MG TABLET PO SCH (09:21)
[2020-12-07] MEDS: INSULIN REGULAR 100 UNIT/ML SUBCUT SCH ×4 (09:21→21:40)
[2020-12-07] MEDS: levETIRAcetam 500 MG TABLET PO SCH ×2 (09:21→21:40)
[2020-12-07] MEDS: PREGABALIN 75 MG CAPSULE PO SCH ×2 (09:21→21:40)
[2020-12-07] MEDS: INSULIN GLARGINE 100 UNIT/ML SUBCUT SCH ×2 (09:31→21:41)
[2020-12-07] MEDS: POLYETHYLENE GLYCOL POWDER 17 GM PACK PO SCH (10:07)
[2020-12-07] MEDS: LINEZOLID INJ 600 MG/300 ML PREMIX IV SCH (22:54)
[2020-12-07] MEDS: diphenhydrAMINE CAP 25 MG CAPSULE PO PRN (23:06)
[2020-12-08] MEDS: HYDROmorphone 2 MG/1 ML VIAL IV PRN ×3 (02:39→11:24)
[2020-12-08] MEDS: PANTOPRAZOLE 40 MG TABLET PO SCH (06:05)
[2020-12-08] MEDS: PREGABALIN 75 MG CAPSULE PO SCH (09:18)
[2020-12-08] MEDS: amLODIPine 10 MG TABLET PO SCH (09:18)
[2020-12-08] MEDS: levETIRAcetam 500 MG TABLET PO SCH (09:18)
[2020-12-08] MEDS: INSULIN REGULAR 100 UNIT/ML SUBCUT SCH ×2 (09:19→11:32)
[2020-12-08] MEDS: ENOXAPARIN 40 MG/0.4 ML SYRINGE SUBCUT SCH (09:19)
[2020-12-08] MEDS: POLYETHYLENE GLYCOL POWDER 17 GM PACK PO SCH (09:20)
[2020-12-08] MEDS: INSULIN GLARGINE 100 UNIT/ML SUBCUT SCH (09:21)
[2020-12-08] MEDS: LINEZOLID INJ 600 MG/300 ML PREMIX IV SCH (11:27)
[2020-12-08 11:48] VITALS: BP 145/75
== END 2020-12-08 15:29 | DRG 240 ==
LOC: N.5E 11:19
PROVIDERS: ADMIT Surgery; ATTEND Surgery

== ENCOUNTER 2021-01-18 15:16 | Inpatient (IN) ==
[2021-01-18] MEDS ORDERED: BISACODYL 5 MG TABLET PO PRN (15:58)
[2021-01-18] MEDS ORDERED: GLUCAGON 1 MG VIAL IM PRN (15:58)
[2021-01-18] MEDS ORDERED: ACETAMINOPHEN 325 MG TABLET PO PRN (15:58)
[2021-01-18] MEDS ORDERED: DEXTROSE 50% 25 GM/50 ML VIAL IV PRN (15:58)
[2021-01-18] MEDS ORDERED: HYDROmorphone 2 MG/1 ML VIAL IV PRN (15:58)
[2021-01-18] MEDS ORDERED: ALBUTEROL/IPRATROPIUM 3 ML NEB RESP TX PRN (15:58)
[2021-01-18 17:52] LABS: Basophils % 0.3 % (0.0-0.8); Eosinophils # 0.1 10*3/uL (0.0-0.87); Eosinophils % 0.8 % (0.00-10.9); Hematocrit 36.9 VOL% (42.0-52.0); Hemoglobin 11.8 GM/DL (14.0-18.0); Immature Granulocytes % 0.4 %; Immature Granulocytes Absolute 0.03 #; Lymphocytes # 1.7 10*3/uL (1.4-4.0); Lymphocytes % 22.5 % (21.2-54.2); Mean Corpuscular Volume 79.5 FL (87-102); Mean Platelet Volume 9.2 FL (9.6-12.0); Monocytes % 9.2 % (1.7-12.7); Neutrophils % 66.8 % (38.7-73.9); Platelet Count 328 T/CUMM (130-400); Red Blood Count 4.64 MC/CUMM (3.8-5.5); Red Cell Distribution Width 15.9 % (9.3-17.3); White Blood Count 7.5 T/CUMM (4-12)
[2021-01-18 18:14] LABS: Calcium 9.2 MG/DL (8.5-10.1); Osmolality,Calculated 265.5 MOS/KG (273-304); Potassium 3.6 MMOL/L (3.5-5.1)
[2021-01-18] MEDS: INSULIN LISPRO 100 UNIT/ML SUBCUT SCH (18:21)
[2021-01-18] MEDS ORDERED: INFLUENZA VIRUS VACCINE 0.5 ML SYRINGE IM ONE (18:51)
[2021-01-18] MEDS ORDERED: PNEUMOCOCCAL VACCINE (13 VALENT) 0.5 ML SYRINGE IM ONE (18:51)
[2021-01-18] MEDS: LACTATED RINGERS 1,000 ML IV SCH ×2 (22:12→22:48)
[2021-01-18] MEDS: ONDANSETRON 4 MG/2 ML VIAL IV PRN (22:45)
[2021-01-18] MEDS: HYDROmorphone 2 MG/1 ML VIAL IV PRN (22:46)
[2021-01-19] MEDS: ONDANSETRON 4 MG/2 ML VIAL IV PRN ×4 (02:52→18:05)
[2021-01-19] MEDS: HYDROmorphone 2 MG/1 ML VIAL IV PRN ×6 (02:53→20:58)
[2021-01-19] MEDS ORDERED: ASPIRIN CHEW 81 MG TABLET PO ONE (05:56)
[2021-01-19] MEDS ORDERED: NITROGLYCERIN SL 0.4 MG TABLET SL ONE ×2 (05:56→05:58)
[2021-01-19] MEDS ORDERED: NITROGLYCERIN SL 0.4 MG TABLET SL PRN (06:13)
[2021-01-19] MEDS ORDERED: MORPHINE 2 MG/1 ML SYRINGE IV ONE ×2 (06:13→06:22)
[2021-01-19 06:15] LABS: Basophils % 0.2 % (0.0-0.8); Eosinophils # 0.1 10*3/uL (0.0-0.87); Eosinophils % 0.4 % (0.00-10.9); Hematocrit 36.1 VOL% (42.0-52.0); Hemoglobin 11.5 GM/DL (14.0-18.0); Immature Granulocytes % 0.5 %; Immature Granulocytes Absolute 0.06 #; Lymphocytes # 1.2 10*3/uL (1.4-4.0); Lymphocytes % 10.3 % (21.2-54.2); Mean Corpuscular HGB Conc 31.9 GM/DL (32-36); Mean Corpuscular Volume 78.1 FL (87-102); Mean Platelet Volume 8.9 FL (9.6-12.0); Monocytes % 9.2 % (1.7-12.7); Neutrophils % 79.4 % (38.7-73.9); Platelet Count 318 T/CUMM (130-400); Red Blood Count 4.62 MC/CUMM (3.8-5.5); Red Cell Distribution Width 15.8 % (9.3-17.3)
[2021-01-19 06:35] LABS: Band Neutrophils 8 % (0-10); Hypochromasia Slight; Lymphocytes 9 % (20-55); Microcytosis Slight; Platelet Estimate Adequate; Segmented Neutrophils 77 % (50-85); Total Cells Counted 100
[2021-01-19 06:46] LABS: Albumin 3.3 G/DL (3.4-5.0); Bilirubin,Total 1.7 MG/DL (0.20-1.00); Calcium 8.8 MG/DL (8.5-10.1); Osmolality,Calculated 265.7 MOS/KG (273-304); Potassium 3.7 MMOL/L (3.5-5.1); Total Protein 8.2 G/DL (6.4-8.2)
[2021-01-19] MEDS: PANTOPRAZOLE 40 MG TABLET PO SCH (08:11)
[2021-01-19] MEDS: INSULIN LISPRO 100 UNIT/ML SUBCUT SCH ×3 (08:20→19:21)
[2021-01-19] MEDS ORDERED: LIDOCAINE 1%/EPI INJ 20 ML VIAL ONE (10:19)
[2021-01-19] MEDS ORDERED: BUPIVACAINE MPF 0.25% 30 ML VIAL ONE (10:19)
[2021-01-19] MEDS ORDERED: LIDOCAINE 1% 20 ML VIAL ONE (10:20)
[2021-01-19] MEDS ORDERED: MIDAZOLAM 2 MG/2 ML VIAL ONE (10:47)
[2021-01-19] MEDS ORDERED: LIDOCAINE 2% 5 ML VIAL ONE (10:47)
[2021-01-19] MEDS ORDERED: fentaNYL 100 MCG/2 ML VIAL ONE (10:47)
[2021-01-19] MEDS ORDERED: propofoL 200 MG/20 ML VIAL IV ONE (10:47)
[2021-01-19] MEDS ORDERED: KETAMINE 500 MG/10 ML VIAL ONE (10:49)
[2021-01-19] MEDS ORDERED: SODIUM CHLORIDE 0.9% 1,000 ML IV ONE (11:07)
[2021-01-19] MEDS: LACTATED RINGERS 1,000 ML IV SCH ×2 (14:19→22:13)
[2021-01-19] MEDS: METHADONE 10 MG TABLET PO SCH ×2 (15:30→22:10)
[2021-01-19] MEDS ORDERED: METHADONE 10 MG TABLET PO SCH (18:00)
[2021-01-19] MEDS: levETIRAcetam 500 MG TABLET PO SCH (20:57)
[2021-01-20] MEDS: ONDANSETRON 4 MG/2 ML VIAL IV PRN ×3 (00:12→18:04)
[2021-01-20] MEDS: HYDROmorphone 2 MG/1 ML VIAL IV PRN ×6 (04:12→23:54)
[2021-01-20] MEDS: INSULIN LISPRO 100 UNIT/ML SUBCUT SCH ×3 (08:51→16:28)
[2021-01-20] MEDS: sitaGLIPtin 100 MG TABLET PO SCH (08:53)
[2021-01-20] MEDS: amLODIPine 10 MG TABLET PO SCH (08:53)
[2021-01-20] MEDS: DAPAGLIFLOZIN 10 MG TABLET PO SCH (08:53)
[2021-01-20] MEDS: levETIRAcetam 500 MG TABLET PO SCH ×2 (08:53→20:30)
[2021-01-20] MEDS: PANTOPRAZOLE 40 MG TABLET PO SCH (08:54)
[2021-01-20] MEDS: METHADONE 10 MG TABLET PO SCH ×3 (08:54→20:30)
[2021-01-20] MEDS ORDERED: ROSUVASTATIN 10 MG TABLET PO SCH (09:00)
[2021-01-20] MEDS: diphenhydrAMINE CAP 25 MG CAPSULE PO PRN (10:49)
[2021-01-20] MEDS: LACTATED RINGERS 1,000 ML IV SCH ×2 (15:11→20:45)
[2021-01-21] MEDS: HYDROmorphone 2 MG/1 ML VIAL IV PRN ×5 (06:29→22:49)
[2021-01-21] MEDS: sitaGLIPtin 100 MG TABLET PO SCH (09:36)
[2021-01-21] MEDS: DAPAGLIFLOZIN 10 MG TABLET PO SCH (09:36)
[2021-01-21] MEDS: amLODIPine 10 MG TABLET PO SCH (09:36)
[2021-01-21] MEDS: INSULIN LISPRO 100 UNIT/ML SUBCUT SCH ×3 (09:36→17:12)
[2021-01-21] MEDS: levETIRAcetam 500 MG TABLET PO SCH ×2 (09:36→22:52)
[2021-01-21] MEDS: PANTOPRAZOLE 40 MG TABLET PO SCH (09:36)
[2021-01-21] MEDS: METHADONE 10 MG TABLET PO SCH ×3 (09:36→22:43)
[2021-01-21] MEDS: diphenhydrAMINE CAP 25 MG CAPSULE PO PRN ×2 (09:36→22:57)
[2021-01-21] MEDS: LACTATED RINGERS 1,000 ML IV SCH (09:38)
[2021-01-22] MEDS: LACTATED RINGERS 1,000 ML IV SCH ×2 (00:12→14:32)
[2021-01-22] MEDS: HYDROmorphone 2 MG/1 ML VIAL IV PRN ×5 (07:55→22:03)
[2021-01-22] MEDS: DAPAGLIFLOZIN 10 MG TABLET PO SCH (08:57)
[2021-01-22] MEDS: PANTOPRAZOLE 40 MG TABLET PO SCH (08:57)
[2021-01-22] MEDS: INSULIN LISPRO 100 UNIT/ML SUBCUT SCH ×3 (08:57→17:08)
[2021-01-22] MEDS: sitaGLIPtin 100 MG TABLET PO SCH (08:57)
[2021-01-22] MEDS: levETIRAcetam 500 MG TABLET PO SCH ×2 (08:57→21:34)
[2021-01-22] MEDS: amLODIPine 10 MG TABLET PO SCH (08:57)
[2021-01-22] MEDS: METHADONE 10 MG TABLET PO SCH ×3 (08:58→21:57)
[2021-01-23] MEDS: HYDROmorphone 2 MG/1 ML VIAL IV PRN ×3 (05:38→12:14)
[2021-01-23] MEDS: INSULIN LISPRO 100 UNIT/ML SUBCUT SCH ×2 (08:34→12:43)
[2021-01-23] MEDS: LACTATED RINGERS 1,000 ML IV SCH (08:34)
[2021-01-23] MEDS: DAPAGLIFLOZIN 10 MG TABLET PO SCH (09:15)
[2021-01-23] MEDS: sitaGLIPtin 100 MG TABLET PO SCH (09:15)
[2021-01-23] MEDS: levETIRAcetam 500 MG TABLET PO SCH (09:15)
[2021-01-23] MEDS: PANTOPRAZOLE 40 MG TABLET PO SCH (09:15)
[2021-01-23] MEDS: amLODIPine 10 MG TABLET PO SCH (09:16)
[2021-01-23] MEDS: METHADONE 10 MG TABLET PO SCH ×2 (09:17→14:59)
[2021-01-23 12:57] VITALS: BP 149/86
== END 2021-01-23 17:00 | disposition home health service (06) | DRG 465 ==
LOC: N.3E 15:33
PROVIDERS: ADMIT Surgery; ATTEND Surgery

== ENCOUNTER 2021-02-06 14:32 | Inpatient (IN) ==
[2021-02-06] MEDS ORDERED: ACETAMINOPHEN 325 MG TABLET PO PRN (15:48)
[2021-02-06] MEDS ORDERED: DEXTROSE 50% 25 GM/50 ML VIAL IV PRN (15:48)
[2021-02-06] MEDS ORDERED: GLUCAGON 1 MG VIAL IM PRN (15:48)
[2021-02-06] MEDS ORDERED: PROMETHAZINE 25 MG/1 ML VIAL IM PRN (15:48)
[2021-02-06] MEDS: INSULIN REGULAR 100 UNIT/ML SUBCUT SCH ×2 (16:47→21:15)
[2021-02-06 16:48] LABS: Calcium 8.9 MG/DL (8.5-10.1); Osmolality,Calculated 268.1 MOS/KG (273-304); Potassium 3.7 MMOL/L (3.5-5.1)
[2021-02-06] MEDS: SODIUM HYPOCHLORITE 0.25% IRRIG 473 ML BOTTLE TOP SCH (17:54)
[2021-02-06] MEDS: LINEZOLID INJ 600 MG/300 ML PREMIX IV SCH (17:55)
[2021-02-06 19:23] LABS: Basophils # 0.1 10*3/uL (0.0-0.2); Basophils % 0.8 % (0.0-0.8); Eosinophils # 0.3 10*3/uL (0.0-0.87); Eosinophils % 4.2 % (0.00-10.9); Hematocrit 32.7 VOL% (42.0-52.0); Hemoglobin 9.9 GM/DL (14.0-18.0); Immature Granulocytes % 0.3 %; Immature Granulocytes Absolute 0.02 #; Lymphocytes # 2.4 10*3/uL (1.4-4.0); Lymphocytes % 31.2 % (21.2-54.2); Mean Corpuscular HGB Conc 30.3 GM/DL (32-36); Mean Corpuscular Volume 80.3 FL (87-102); Mean Platelet Volume 9.9 FL (9.6-12.0); Monocytes % 7.3 % (1.7-12.7); Neutrophils % 56.2 % (38.7-73.9); Platelet Count 418 T/CUMM (130-400); Red Blood Count 4.07 MC/CUMM (3.8-5.5); Red Cell Distribution Width 16.2 % (9.3-17.3); White Blood Count 7.5 T/CUMM (4-12)
[2021-02-06] MEDS: METHADONE 10 MG TABLET PO SCH ×2 (21:21→22:15)
[2021-02-07] MEDS: METHADONE 10 MG TABLET PO SCH ×3 (05:06→20:05)
[2021-02-07] MEDS: LINEZOLID INJ 600 MG/300 ML PREMIX IV SCH (05:06)
[2021-02-07 06:55] LABS: Basophils # 0.1 10*3/uL (0.0-0.2); Basophils % 1.2 % (0.0-0.8); Eosinophils # 0.5 10*3/uL (0.0-0.87); Eosinophils % 7.9 % (0.00-10.9); Hematocrit 36.3 VOL% (42.0-52.0); Immature Granulocytes % 0.3 %; Immature Granulocytes Absolute 0.02 #; Lymphocytes # 2.6 10*3/uL (1.4-4.0); Lymphocytes % 45.3 % (21.2-54.2); Mean Corpuscular HGB Conc 30.3 GM/DL (32-36); Mean Corpuscular Volume 79.6 FL (87-102); Monocytes % 7.2 % (1.7-12.7); Neutrophils % 38.1 % (38.7-73.9); Platelet Count 396 T/CUMM (130-400); Red Blood Count 4.56 MC/CUMM (3.8-5.5); Red Cell Distribution Width 15.8 % (9.3-17.3); White Blood Count 5.8 T/CUMM (4-12)
[2021-02-07 07:28] LABS: Atypical Lymphocytes Few; Eosinophils 7 % (0-10); Hypochromasia 1+; Lymphocytes 53 % (20-55); Segmented Neutrophils 33 % (50-85); Total Cells Counted 100
[2021-02-07 07:29] LABS: Microcytosis 1+; Platelet Estimate Normal
[2021-02-07 07:32] LABS: Calcium 9.1 MG/DL (8.5-10.1); Potassium 3.7 MMOL/L (3.5-5.1)
[2021-02-07] MEDS: PANTOPRAZOLE 40 MG TABLET PO SCH (09:26)
[2021-02-07] MEDS: ENOXAPARIN 40 MG/0.4 ML SYRINGE SUBCUT SCH (09:26)
[2021-02-07] MEDS: amLODIPine 10 MG TABLET PO SCH (09:26)
[2021-02-07] MEDS: INSULIN REGULAR 100 UNIT/ML SUBCUT SCH ×4 (09:28→21:17)
[2021-02-07] MEDS: SODIUM HYPOCHLORITE 0.25% IRRIG 473 ML BOTTLE TOP SCH (09:28)
[2021-02-07] MEDS: levETIRAcetam 500 MG TABLET PO SCH ×2 (09:44→20:04)
[2021-02-08] MEDS: INSULIN REGULAR 100 UNIT/ML SUBCUT SCH ×4 (07:38→22:14)
[2021-02-08] MEDS: HYDROmorphone 2 MG/1 ML VIAL IV PRN ×3 (10:27→22:29)
[2021-02-08] MEDS: ENOXAPARIN 40 MG/0.4 ML SYRINGE SUBCUT SCH (10:31)
[2021-02-08] MEDS: amLODIPine 10 MG TABLET PO SCH (10:31)
[2021-02-08] MEDS: SODIUM HYPOCHLORITE 0.25% IRRIG 473 ML BOTTLE TOP SCH (10:31)
[2021-02-08] MEDS: METHADONE 10 MG TABLET PO SCH ×3 (10:31→21:06)
[2021-02-08] MEDS: levETIRAcetam 500 MG TABLET PO SCH ×2 (10:31→21:04)
[2021-02-08] MEDS: PANTOPRAZOLE 40 MG TABLET PO SCH (10:31)
[2021-02-08] MEDS ORDERED: LIDOCAINE 1% 50 ML VIAL ONE (11:04)
[2021-02-08] MEDS ORDERED: LIDOCAINE 2% 5 ML VIAL ONE (11:12)
[2021-02-08] MEDS ORDERED: propofoL 200 MG/20 ML VIAL IV ONE (11:12)
[2021-02-08] MEDS ORDERED: MIDAZOLAM 2 MG/2 ML VIAL ONE ×2 (11:12→11:13)
[2021-02-08] MEDS ORDERED: fentaNYL 100 MCG/2 ML VIAL ONE (11:13)
[2021-02-08] MEDS ORDERED: KETAMINE 500 MG/10 ML VIAL ONE (11:16)
[2021-02-08] MEDS ORDERED: LACTATED RINGERS 1,000 ML IV SCH (11:30)
[2021-02-08] MEDS ORDERED: MEPERIDINE 25 MG/1 ML VIAL ONE (12:37)
[2021-02-08] MEDS ORDERED: diphenhydrAMINE 50 MG/1 ML VIAL IV PRN (12:38)
[2021-02-08] MEDS ORDERED: ONDANSETRON 4 MG/2 ML VIAL IV PRN (12:38)
[2021-02-08] MEDS ORDERED: HYDROmorphone 2 MG/1 ML VIAL IV PRN (12:38)
[2021-02-08] MEDS ORDERED: MEPERIDINE 25 MG/1 ML VIAL IV PRN (12:38)
[2021-02-08] MEDS ORDERED: PROMETHAZINE INJ 25 MG in SODIUM CHLORIDE 0.9% 50 ML IV PRN (12:38)
[2021-02-09] MEDS: HYDROmorphone 2 MG/1 ML VIAL IV PRN ×4 (04:35→21:43)
[2021-02-09] MEDS: INSULIN REGULAR 100 UNIT/ML SUBCUT SCH ×4 (07:29→21:52)
[2021-02-09] MEDS: amLODIPine 10 MG TABLET PO SCH (08:11)
[2021-02-09] MEDS: levETIRAcetam 500 MG TABLET PO SCH ×2 (08:11→21:42)
[2021-02-09] MEDS: ENOXAPARIN 40 MG/0.4 ML SYRINGE SUBCUT SCH (08:11)
[2021-02-09] MEDS: PANTOPRAZOLE 40 MG TABLET PO SCH (08:11)
[2021-02-09] MEDS: METHADONE 10 MG TABLET PO SCH ×3 (08:11→21:42)
[2021-02-09] MEDS: SODIUM HYPOCHLORITE 0.25% IRRIG 473 ML BOTTLE TOP SCH (09:47)
[2021-02-10] MEDS: HYDROmorphone 2 MG/1 ML VIAL IV PRN ×4 (00:47→16:26)
[2021-02-10] MEDS ORDERED: POTASSIUM CHLORIDE 20 MEQ TABLET PO ONE (08:00)
[2021-02-10] MEDS: ENOXAPARIN 40 MG/0.4 ML SYRINGE SUBCUT SCH (10:01)
[2021-02-10] MEDS: METHADONE 10 MG TABLET PO SCH ×3 (10:03→21:02)
[2021-02-10] MEDS: PANTOPRAZOLE 40 MG TABLET PO SCH (10:04)
[2021-02-10] MEDS: amLODIPine 10 MG TABLET PO SCH (10:04)
[2021-02-10] MEDS: levETIRAcetam 500 MG TABLET PO SCH ×2 (10:04→21:02)
[2021-02-10] MEDS: SODIUM HYPOCHLORITE 0.25% IRRIG 473 ML BOTTLE TOP SCH (10:05)
[2021-02-10] MEDS: CIPROFLOXACIN INJ 400 MG/200 ML PREMIX IV SCH ×2 (10:05→21:01)
[2021-02-10] MEDS: INSULIN REGULAR 100 UNIT/ML SUBCUT SCH ×4 (10:06→21:22)
[2021-02-10] MEDS: ONDANSETRON 4 MG/2 ML VIAL IV PRN ×2 (12:36→21:13)
[2021-02-11] MEDS: HYDROmorphone 2 MG/1 ML VIAL IV PRN ×4 (02:06→18:16)
[2021-02-11] MEDS: CIPROFLOXACIN INJ 400 MG/200 ML PREMIX IV SCH ×2 (08:47→20:25)
[2021-02-11] MEDS: ENOXAPARIN 40 MG/0.4 ML SYRINGE SUBCUT SCH (08:48)
[2021-02-11] MEDS: METHADONE 10 MG TABLET PO SCH ×3 (08:49→20:24)
[2021-02-11] MEDS: levETIRAcetam 500 MG TABLET PO SCH ×2 (08:49→20:24)
[2021-02-11] MEDS: PANTOPRAZOLE 40 MG TABLET PO SCH (08:49)
[2021-02-11] MEDS: amLODIPine 10 MG TABLET PO SCH (08:49)
[2021-02-11] MEDS: INSULIN REGULAR 100 UNIT/ML SUBCUT SCH ×4 (08:50→21:30)
[2021-02-11] MEDS: SODIUM HYPOCHLORITE 0.25% IRRIG 473 ML BOTTLE TOP SCH (08:51)
[2021-02-12] MEDS: HYDROmorphone 2 MG/1 ML VIAL IV PRN ×3 (01:36→14:30)
[2021-02-12] MEDS: PANTOPRAZOLE 40 MG TABLET PO SCH (08:02)
[2021-02-12] MEDS: amLODIPine 10 MG TABLET PO SCH (08:03)
[2021-02-12] MEDS: METHADONE 10 MG TABLET PO SCH ×3 (08:03→21:02)
[2021-02-12] MEDS: levETIRAcetam 500 MG TABLET PO SCH ×2 (08:03→21:02)
[2021-02-12] MEDS: ENOXAPARIN 40 MG/0.4 ML SYRINGE SUBCUT SCH (08:04)
[2021-02-12] MEDS: SODIUM HYPOCHLORITE 0.25% IRRIG 473 ML BOTTLE TOP SCH (08:04)
[2021-02-12] MEDS: CIPROFLOXACIN INJ 400 MG/200 ML PREMIX IV SCH (08:05)
[2021-02-12] MEDS: INSULIN REGULAR 100 UNIT/ML SUBCUT SCH ×3 (08:05→16:41)
[2021-02-12] MEDS: ONDANSETRON 4 MG/2 ML VIAL IV PRN (11:17)
[2021-02-12] MEDS: MORPHINE 2 MG/1 ML SYRINGE IM PRN ×2 (18:13→22:19)
[2021-02-12] MEDS: CIPROFLOXACIN 500 MG TABLET PO SCH (21:03)
[2021-02-13] MEDS: INSULIN REGULAR 100 UNIT/ML SUBCUT SCH ×5 (01:20→20:33)
[2021-02-13] MEDS: MORPHINE 2 MG/1 ML SYRINGE IM PRN ×4 (03:53→20:33)
[2021-02-13] MEDS: ENOXAPARIN 40 MG/0.4 ML SYRINGE SUBCUT SCH (08:14)
[2021-02-13] MEDS: amLODIPine 10 MG TABLET PO SCH (08:15)
[2021-02-13] MEDS: CIPROFLOXACIN 500 MG TABLET PO SCH ×2 (08:15→20:32)
[2021-02-13] MEDS: PANTOPRAZOLE 40 MG TABLET PO SCH (08:15)
[2021-02-13] MEDS: METHADONE 10 MG TABLET PO SCH ×3 (08:16→20:33)
[2021-02-13] MEDS: levETIRAcetam 500 MG TABLET PO SCH ×2 (08:16→20:32)
[2021-02-13] MEDS: SODIUM HYPOCHLORITE 0.25% IRRIG 473 ML BOTTLE TOP SCH (09:25)
[2021-02-13] MEDS ORDERED: SODIUM HYPOCHLORITE 0.25% IRR 1 APPLIC in IV BAG 1 EACH IRRIG PRN (10:25)
[2021-02-13] MEDS: ONDANSETRON 4 MG/2 ML VIAL IV PRN (20:37)
[2021-02-14] MEDS: MORPHINE 2 MG/1 ML SYRINGE IM PRN (02:53)
[2021-02-14] MEDS: SODIUM HYPOCHLORITE 0.25% IRRIG 473 ML BOTTLE TOP SCH (08:21)
[2021-02-14] MEDS: INSULIN REGULAR 100 UNIT/ML SUBCUT SCH ×4 (08:23→21:23)
[2021-02-14] MEDS: levETIRAcetam 500 MG TABLET PO SCH ×2 (08:47→21:22)
[2021-02-14] MEDS: PANTOPRAZOLE 40 MG TABLET PO SCH (08:47)
[2021-02-14] MEDS: ENOXAPARIN 40 MG/0.4 ML SYRINGE SUBCUT SCH (08:48)
[2021-02-14] MEDS: METHADONE 10 MG TABLET PO SCH ×3 (08:48→21:23)
[2021-02-14] MEDS: amLODIPine 10 MG TABLET PO SCH (08:48)
[2021-02-14] MEDS: CIPROFLOXACIN 500 MG TABLET PO SCH ×2 (08:48→21:22)
[2021-02-14] MEDS: MORPHINE 2 MG/1 ML SYRINGE IV PRN ×4 (09:04→23:13)
[2021-02-14] MEDS ORDERED: IBUPROFEN 600 MG TABLET PO SCH (09:30)
[2021-02-14] MEDS: IBUPROFEN 600 MG TABLET PO SCH ×2 (14:05→18:40)
[2021-02-15] MEDS: MORPHINE 2 MG/1 ML SYRINGE IV PRN ×2 (04:49→23:52)
[2021-02-15] MEDS: METHADONE 10 MG TABLET PO SCH ×3 (09:05→21:35)
[2021-02-15] MEDS: PANTOPRAZOLE 40 MG TABLET PO SCH (09:05)
[2021-02-15] MEDS: IBUPROFEN 600 MG TABLET PO SCH ×3 (09:06→17:39)
[2021-02-15] MEDS: levETIRAcetam 500 MG TABLET PO SCH ×2 (09:06→21:34)
[2021-02-15] MEDS: ENOXAPARIN 40 MG/0.4 ML SYRINGE SUBCUT SCH (09:07)
[2021-02-15] MEDS: amLODIPine 10 MG TABLET PO SCH (09:07)
[2021-02-15] MEDS: CIPROFLOXACIN INJ 400 MG/200 ML PREMIX IV SCH ×3 (09:08→21:35)
[2021-02-15] MEDS: SODIUM HYPOCHLORITE 0.25% IRRIG 473 ML BOTTLE TOP SCH (09:11)
[2021-02-15] MEDS: MORPHINE 2 MG/1 ML SYRINGE IM PRN ×2 (12:07→15:51)
[2021-02-15] MEDS: INSULIN REGULAR 100 UNIT/ML SUBCUT SCH ×4 (12:12→21:48)
[2021-02-15] MEDS: CIPROFLOXACIN 500 MG TABLET PO SCH ×3 (12:36→17:28)
[2021-02-15] MEDS ORDERED: ALTEPLASE 2 MG VIAL ONE (13:23)
[2021-02-15] MEDS ORDERED: ALTEPLASE 2 MG VIAL IV ONE (13:32)
[2021-02-16] MEDS: MORPHINE 2 MG/1 ML SYRINGE IV PRN ×4 (05:40→20:25)
[2021-02-16] MEDS: CIPROFLOXACIN INJ 400 MG/200 ML PREMIX IV SCH ×2 (09:28→21:48)
[2021-02-16] MEDS: INSULIN REGULAR 100 UNIT/ML SUBCUT SCH ×4 (09:28→20:46)
[2021-02-16] MEDS: ENOXAPARIN 40 MG/0.4 ML SYRINGE SUBCUT SCH (09:29)
[2021-02-16] MEDS: levETIRAcetam 500 MG TABLET PO SCH ×2 (09:29→21:47)
[2021-02-16] MEDS: amLODIPine 10 MG TABLET PO SCH (09:29)
[2021-02-16] MEDS: METHADONE 10 MG TABLET PO SCH ×3 (09:30→21:47)
[2021-02-16] MEDS: SODIUM HYPOCHLORITE 0.25% IRRIG 473 ML BOTTLE TOP SCH (09:30)
[2021-02-16] MEDS: IBUPROFEN 600 MG TABLET PO SCH ×3 (09:30→16:07)
[2021-02-16] MEDS: PANTOPRAZOLE 40 MG TABLET PO SCH (09:30)
[2021-02-16] MEDS: ROSUVASTATIN 10 MG TABLET PO SCH (09:32)
[2021-02-16] MEDS: ONDANSETRON 4 MG/2 ML VIAL IV PRN (12:13)
[2021-02-17] MEDS: MORPHINE 2 MG/1 ML SYRINGE IV PRN ×3 (03:26→18:20)
[2021-02-17] MEDS: PANTOPRAZOLE 40 MG TABLET PO SCH (08:38)
[2021-02-17] MEDS: amLODIPine 10 MG TABLET PO SCH (08:39)
[2021-02-17] MEDS: ROSUVASTATIN 10 MG TABLET PO SCH (08:39)
[2021-02-17] MEDS: levETIRAcetam 500 MG TABLET PO SCH ×2 (08:39→20:38)
[2021-02-17] MEDS: IBUPROFEN 600 MG TABLET PO SCH (08:39)
[2021-02-17] MEDS: METHADONE 10 MG TABLET PO SCH ×3 (08:39→20:39)
[2021-02-17] MEDS: INSULIN REGULAR 100 UNIT/ML SUBCUT SCH ×4 (08:40→20:39)
[2021-02-17] MEDS: ENOXAPARIN 40 MG/0.4 ML SYRINGE SUBCUT SCH (08:40)
[2021-02-17] MEDS: CIPROFLOXACIN INJ 400 MG/200 ML PREMIX IV SCH ×2 (08:40→20:39)
[2021-02-17] MEDS: SODIUM HYPOCHLORITE 0.25% IRRIG 473 ML BOTTLE TOP SCH (09:39)
[2021-02-18] MEDS: MORPHINE 2 MG/1 ML SYRINGE IV PRN ×4 (00:12→21:14)
[2021-02-18] MEDS: ENOXAPARIN 40 MG/0.4 ML SYRINGE SUBCUT SCH (08:23)
[2021-02-18] MEDS: CIPROFLOXACIN INJ 400 MG/200 ML PREMIX IV SCH ×2 (08:25→20:19)
[2021-02-18] MEDS: METHADONE 10 MG TABLET PO SCH ×3 (08:26→20:03)
[2021-02-18] MEDS: levETIRAcetam 500 MG TABLET PO SCH ×2 (08:27→20:17)
[2021-02-18] MEDS: amLODIPine 10 MG TABLET PO SCH (08:27)
[2021-02-18] MEDS: ROSUVASTATIN 10 MG TABLET PO SCH (08:28)
[2021-02-18] MEDS: PANTOPRAZOLE 40 MG TABLET PO SCH (08:28)
[2021-02-18] MEDS: INSULIN REGULAR 100 UNIT/ML SUBCUT SCH ×4 (09:36→21:12)
[2021-02-18] MEDS: ONDANSETRON 4 MG/2 ML VIAL IV PRN (09:39)
[2021-02-18] MEDS: SODIUM HYPOCHLORITE 0.25% IRRIG 473 ML BOTTLE TOP SCH (11:21)
[2021-02-19] MEDS: MORPHINE 2 MG/1 ML SYRINGE IV PRN ×5 (01:16→23:04)
[2021-02-19] MEDS: levETIRAcetam 500 MG TABLET PO SCH ×2 (08:47→20:56)
[2021-02-19] MEDS: INSULIN REGULAR 100 UNIT/ML SUBCUT SCH ×4 (08:47→20:57)
[2021-02-19] MEDS: amLODIPine 10 MG TABLET PO SCH (08:47)
[2021-02-19] MEDS: ROSUVASTATIN 10 MG TABLET PO SCH (08:47)
[2021-02-19] MEDS: ENOXAPARIN 40 MG/0.4 ML SYRINGE SUBCUT SCH (08:48)
[2021-02-19] MEDS: CIPROFLOXACIN INJ 400 MG/200 ML PREMIX IV SCH ×2 (08:48→20:57)
[2021-02-19] MEDS: PANTOPRAZOLE 40 MG TABLET PO SCH (08:52)
[2021-02-19] MEDS: SODIUM HYPOCHLORITE 0.25% IRRIG 473 ML BOTTLE TOP SCH (10:32)
[2021-02-19] MEDS: METHADONE 10 MG TABLET PO SCH ×3 (10:47→20:55)
[2021-02-19] MEDS: ONDANSETRON 4 MG/2 ML VIAL IV PRN ×2 (10:51→19:22)
[2021-02-20] MEDS: MORPHINE 2 MG/1 ML SYRINGE IV PRN ×4 (03:51→20:46)
[2021-02-20] MEDS: levETIRAcetam 500 MG TABLET PO SCH ×2 (08:22→21:58)
[2021-02-20] MEDS: amLODIPine 10 MG TABLET PO SCH (08:23)
[2021-02-20] MEDS: ROSUVASTATIN 10 MG TABLET PO SCH (08:23)
[2021-02-20] MEDS: PANTOPRAZOLE 40 MG TABLET PO SCH (08:23)
[2021-02-20] MEDS: METHADONE 10 MG TABLET PO SCH ×3 (08:23→21:58)
[2021-02-20] MEDS: ENOXAPARIN 40 MG/0.4 ML SYRINGE SUBCUT SCH (08:24)
[2021-02-20] MEDS: INSULIN REGULAR 100 UNIT/ML SUBCUT SCH ×4 (09:01→21:58)
[2021-02-20] MEDS: CIPROFLOXACIN INJ 400 MG/200 ML PREMIX IV SCH ×2 (09:18→21:59)
[2021-02-20] MEDS: ACETIC ACID 0.25% IRRIGATION 1,000 ML BOTTLE IRRIG SCH ×2 (10:29→21:59)
[2021-02-21] MEDS: MORPHINE 2 MG/1 ML SYRINGE IV PRN ×4 (01:50→19:48)
[2021-02-21] MEDS: INSULIN REGULAR 100 UNIT/ML SUBCUT SCH ×4 (08:39→22:21)
[2021-02-21] MEDS: CIPROFLOXACIN INJ 400 MG/200 ML PREMIX IV SCH ×2 (08:40→22:22)
[2021-02-21] MEDS: levETIRAcetam 500 MG TABLET PO SCH ×2 (08:40→22:20)
[2021-02-21] MEDS: PANTOPRAZOLE 40 MG TABLET PO SCH (08:41)
[2021-02-21] MEDS: amLODIPine 10 MG TABLET PO SCH (08:41)
[2021-02-21] MEDS: ROSUVASTATIN 10 MG TABLET PO SCH (08:41)
[2021-02-21] MEDS: METHADONE 10 MG TABLET PO SCH ×3 (08:42→22:20)
[2021-02-21] MEDS: ENOXAPARIN 40 MG/0.4 ML SYRINGE SUBCUT SCH (08:42)
[2021-02-21] MEDS ORDERED: ACETIC ACID 0.25% IRRIGATION 1,000 ML BOTTLE IRRIG SCH (09:00)
[2021-02-21] MEDS: ACETIC ACID 0.25% IRRIGATION 1,000 ML BOTTLE IRRIG SCH (22:48)
[2021-02-22] MEDS: ACETIC ACID 0.25% IRRIGATION 1,000 ML BOTTLE IRRIG SCH ×9 (01:30→22:43)
[2021-02-22] MEDS: MORPHINE 2 MG/1 ML SYRINGE IV PRN ×4 (02:13→21:26)
[2021-02-22 08:50] LABS: Bilirubin,Urine Negative (Negative); Blood, Urine Small mg/dL (Negative); Glucose,Urine (UA) Negative (Negative); Ketones,Urine Negative (Negative); Nitrite,Urine Negative (Negative); Protein,Urine Negative; RBC,Urine 3 /HPF (0-4); Urine Appearance CLEAR (Clear); Urine Color Straw (Yellow); Urine Specific Gravity 1.012 (1.001-1.035); Urine Urobilinogen < 2.0 EU/DL (0.2-1.0)
[2021-02-22] MEDS: ENOXAPARIN 40 MG/0.4 ML SYRINGE SUBCUT SCH (09:10)
[2021-02-22] MEDS: levETIRAcetam 500 MG TABLET PO SCH ×2 (09:11→21:24)
[2021-02-22] MEDS: DOCUSATE SODIUM 100 MG CAPSULE PO SCH ×2 (09:11→21:23)
[2021-02-22] MEDS: ROSUVASTATIN 10 MG TABLET PO SCH (09:11)
[2021-02-22] MEDS: PANTOPRAZOLE 40 MG TABLET PO SCH (09:11)
[2021-02-22] MEDS: METHADONE 10 MG TABLET PO SCH ×3 (09:11→22:42)
[2021-02-22] MEDS: amLODIPine 10 MG TABLET PO SCH (09:12)
[2021-02-22] MEDS: INSULIN REGULAR 100 UNIT/ML SUBCUT SCH ×4 (09:16→21:26)
[2021-02-22] MEDS: CIPROFLOXACIN INJ 400 MG/200 ML PREMIX IV SCH ×2 (09:19→21:27)
[2021-02-23] MEDS: ACETIC ACID 0.25% IRRIGATION 1,000 ML BOTTLE IRRIG SCH ×10 (01:35→22:02)
[2021-02-23] MEDS: MORPHINE 2 MG/1 ML SYRINGE IV PRN ×4 (03:59→20:13)
[2021-02-23] MEDS: DOCUSATE SODIUM 100 MG CAPSULE PO SCH ×2 (09:13→21:00)
[2021-02-23] MEDS: ENOXAPARIN 40 MG/0.4 ML SYRINGE SUBCUT SCH (09:13)
[2021-02-23] MEDS: amLODIPine 10 MG TABLET PO SCH (09:13)
[2021-02-23] MEDS: levETIRAcetam 500 MG TABLET PO SCH ×2 (09:13→21:00)
[2021-02-23] MEDS: PANTOPRAZOLE 40 MG TABLET PO SCH (09:13)
[2021-02-23] MEDS: ROSUVASTATIN 10 MG TABLET PO SCH (09:14)
[2021-02-23] MEDS: INSULIN REGULAR 100 UNIT/ML SUBCUT SCH ×4 (09:14→21:04)
[2021-02-23] MEDS: METHADONE 10 MG TABLET PO SCH ×3 (09:14→21:00)
[2021-02-23] MEDS: CIPROFLOXACIN INJ 400 MG/200 ML PREMIX IV SCH ×2 (10:03→21:00)
[2021-02-24] MEDS: MORPHINE 2 MG/1 ML SYRINGE IV PRN ×5 (02:32→23:24)
[2021-02-24] MEDS: INSULIN REGULAR 100 UNIT/ML SUBCUT SCH ×4 (08:40→21:13)
[2021-02-24] MEDS: CIPROFLOXACIN INJ 400 MG/200 ML PREMIX IV SCH ×2 (08:42→21:15)
[2021-02-24] MEDS: DOCUSATE SODIUM 100 MG CAPSULE PO SCH ×2 (08:46→21:14)
[2021-02-24] MEDS: levETIRAcetam 500 MG TABLET PO SCH ×2 (08:46→21:13)
[2021-02-24] MEDS: ROSUVASTATIN 10 MG TABLET PO SCH (08:46)
[2021-02-24] MEDS: METHADONE 10 MG TABLET PO SCH ×3 (08:47→21:14)
[2021-02-24] MEDS: PANTOPRAZOLE 40 MG TABLET PO SCH (08:48)
[2021-02-24] MEDS: amLODIPine 10 MG TABLET PO SCH (08:48)
[2021-02-24] MEDS: ENOXAPARIN 40 MG/0.4 ML SYRINGE SUBCUT SCH (08:48)
[2021-02-25] MEDS: MORPHINE 2 MG/1 ML SYRINGE IV PRN ×4 (04:27→20:45)
[2021-02-25] MEDS: METHADONE 10 MG TABLET PO SCH ×3 (09:08→20:30)
[2021-02-25] MEDS: PANTOPRAZOLE 40 MG TABLET PO SCH (09:08)
[2021-02-25] MEDS: DOCUSATE SODIUM 100 MG CAPSULE PO SCH ×2 (09:08→20:30)
[2021-02-25] MEDS: ROSUVASTATIN 10 MG TABLET PO SCH (09:08)
[2021-02-25] MEDS: CIPROFLOXACIN INJ 400 MG/200 ML PREMIX IV SCH ×2 (09:09→20:56)
[2021-02-25] MEDS: levETIRAcetam 500 MG TABLET PO SCH ×2 (09:09→20:30)
[2021-02-25] MEDS: INSULIN REGULAR 100 UNIT/ML SUBCUT SCH ×4 (09:09→21:01)
[2021-02-25] MEDS: ENOXAPARIN 40 MG/0.4 ML SYRINGE SUBCUT SCH (09:09)
[2021-02-25] MEDS: amLODIPine 10 MG TABLET PO SCH (09:09)
[2021-02-25] MEDS ORDERED: diphenhydrAMINE CAP 25 MG CAPSULE PO ONE (13:44)
[2021-02-26] MEDS: MORPHINE 2 MG/1 ML SYRINGE IV PRN ×5 (02:40→23:20)
[2021-02-26] MEDS: INSULIN REGULAR 100 UNIT/ML SUBCUT SCH ×4 (08:41→23:35)
[2021-02-26] MEDS: levETIRAcetam 500 MG TABLET PO SCH ×2 (08:42→21:07)
[2021-02-26] MEDS: ROSUVASTATIN 10 MG TABLET PO SCH (08:42)
[2021-02-26] MEDS: amLODIPine 10 MG TABLET PO SCH (08:42)
[2021-02-26] MEDS: METHADONE 10 MG TABLET PO SCH ×3 (08:42→21:08)
[2021-02-26] MEDS: DOCUSATE SODIUM 100 MG CAPSULE PO SCH ×2 (08:43→21:08)
[2021-02-26] MEDS: PANTOPRAZOLE 40 MG TABLET PO SCH (08:43)
[2021-02-26] MEDS: ENOXAPARIN 40 MG/0.4 ML SYRINGE SUBCUT SCH (08:43)
[2021-02-26] MEDS: CIPROFLOXACIN INJ 400 MG/200 ML PREMIX IV SCH ×2 (08:44→21:08)
[2021-02-27] MEDS: MORPHINE 2 MG/1 ML SYRINGE IV PRN ×2 (05:52→11:45)
[2021-02-27] MEDS: DOCUSATE SODIUM 100 MG CAPSULE PO SCH (08:46)
[2021-02-27] MEDS: amLODIPine 10 MG TABLET PO SCH (08:46)
[2021-02-27] MEDS: ROSUVASTATIN 10 MG TABLET PO SCH (08:46)
[2021-02-27] MEDS: ENOXAPARIN 40 MG/0.4 ML SYRINGE SUBCUT SCH (08:46)
[2021-02-27] MEDS: levETIRAcetam 500 MG TABLET PO SCH (08:46)
[2021-02-27] MEDS: INSULIN REGULAR 100 UNIT/ML SUBCUT SCH ×2 (08:47→11:50)
[2021-02-27] MEDS: PANTOPRAZOLE 40 MG TABLET PO SCH (08:47)
[2021-02-27] MEDS: METHADONE 10 MG TABLET PO SCH (08:47)
[2021-02-27] MEDS: CIPROFLOXACIN INJ 400 MG/200 ML PREMIX IV SCH (08:47)
[2021-02-27] MEDS ORDERED: ACETIC ACID 0.25% IRRIGATION 1,000 ML BOTTLE IRRIG SCH (09:30)
[2021-02-27 12:31] VITALS: BP 131/79
== END 2021-02-27 13:52 | disposition home health service (06) | DRG 464 ==
LOC: N.3E 14:52
PROVIDERS: ADMIT Surgery; ATTEND Surgery

== ENCOUNTER 2021-09-07 10:35 | Inpatient (IN) ==
[2021-09-07] MEDS ORDERED: ALBUTEROL/IPRATROPIUM 3 ML NEB RESP TX PRN (11:16)
[2021-09-07] MEDS ORDERED: ACETAMINOPHEN 325 MG TABLET PO PRN (11:16)
[2021-09-07] MEDS ORDERED: BISACODYL 5 MG TABLET PO PRN (11:16)
[2021-09-07] MEDS ORDERED: GLUCAGON 1 MG VIAL IM PRN (11:16)
[2021-09-07] MEDS ORDERED: DEXTROSE 10% 250 ML BAG IV PRN (11:16)
[2021-09-07] MEDS ORDERED: ONDANSETRON 4 MG/2 ML VIAL IV PRN (11:16)
[2021-09-07] MEDS ORDERED: HYDROmorphone 1 MG/1 ML SYRINGE IV PRN (11:16)
[2021-09-07 12:43] LABS: Basophils % 0.3 % (0.0-0.8); Eosinophils % 0.1 % (0.00-10.9); Hematocrit 30.3 VOL% (42.0-52.0); Hemoglobin 9.3 GM/DL (14.0-18.0); Immature Granulocytes % 0.9 %; Lymphocytes # 1.2 10*3/uL (1.4-4.0); Lymphocytes % 9.8 % (21.2-54.2); Mean Corpuscular HGB Conc 30.7 GM/DL (32-36); Mean Corpuscular Volume 78.7 FL (87-102); Mean Platelet Volume 8.7 FL (9.6-12.0); Monocytes % 8.1 % (1.7-12.7); Neutrophils % 80.8 % (38.7-73.9); Platelet Count 473 T/CUMM (130-400); Red Blood Count 3.85 MC/CUMM (3.8-5.5); Red Cell Distribution Width 14.9 % (9.3-17.3); White Blood Count 11.7 T/CUMM (4-12)
[2021-09-07 13:01] LABS: Calcium 9.1 MG/DL (8.5-10.1); Osmolality,Calculated 259.2 MOS/KG (273-304); Potassium 3.6 MMOL/L (3.5-5.1)
[2021-09-07] MEDS: INSULIN LISPRO 100 UNIT/ML SUBCUT SCH ×2 (13:14→16:30)
[2021-09-07] MEDS: HYDROmorphone 1 MG/1 ML SYRINGE IV PRN ×4 (13:32→23:30)
[2021-09-07] MEDS: AMPICILLIN/SULBACTAM 3,000 MG in SODIUM CHLORIDE 0.9% 100 ML IV SCH ×2 (13:34→20:04)
[2021-09-08] MEDS: AMPICILLIN/SULBACTAM 3,000 MG in SODIUM CHLORIDE 0.9% 100 ML IV SCH ×3 (05:13→21:03)
[2021-09-08] MEDS: HYDROmorphone 1 MG/1 ML SYRINGE IV PRN ×6 (05:44→23:55)
[2021-09-08] MEDS ORDERED: DEXTROSE 50% 25 GM/50 ML VIAL IV PRN ×2 (07:47→07:51)
[2021-09-08] MEDS ORDERED: GLUCAGON 1 MG VIAL IM PRN (07:51)
[2021-09-08] MEDS: INSULIN LISPRO 100 UNIT/ML SUBCUT SCH ×3 (08:39→16:41)
[2021-09-08] MEDS: PANTOPRAZOLE 40 MG TABLET PO SCH (10:38)
[2021-09-08] MEDS: MULTIVITAMIN (CENTRUM) TABLET PO SCH (13:00)
[2021-09-08] MEDS: CHOLECALCIFEROL 5,000 UNIT TABLET PO SCH (13:00)
[2021-09-08] MEDS: NYSTATIN 500,000 UNIT/5 ML UDCUP PO SCH ×3 (13:00→21:04)
[2021-09-08] MEDS: METHADONE 10 MG TABLET PO SCH ×2 (13:12→21:04)
[2021-09-08] MEDS: levETIRAcetam 500 MG TABLET PO SCH (21:03)
[2021-09-08] MEDS: INSULIN GLARGINE 100 UNIT/ML SUBCUT SCH (21:04)
[2021-09-09] MEDS: HYDROmorphone 1 MG/1 ML SYRINGE IV PRN ×7 (03:29→22:57)
[2021-09-09] MEDS: METHADONE 10 MG TABLET PO SCH ×3 (05:58→22:40)
[2021-09-09] MEDS: AMPICILLIN/SULBACTAM 3,000 MG in SODIUM CHLORIDE 0.9% 100 ML IV SCH ×3 (05:59→20:41)
[2021-09-09] MEDS: NYSTATIN 500,000 UNIT/5 ML UDCUP PO SCH ×5 (09:07→20:43)
[2021-09-09] MEDS: levETIRAcetam 500 MG TABLET PO SCH ×2 (09:07→20:41)
[2021-09-09] MEDS: CHOLECALCIFEROL 5,000 UNIT TABLET PO SCH (09:08)
[2021-09-09] MEDS: MULTIVITAMIN (CENTRUM) TABLET PO SCH (09:08)
[2021-09-09] MEDS: DAPAGLIFLOZIN 10 MG TABLET PO SCH (09:08)
[2021-09-09] MEDS: sitaGLIPtin 100 MG TABLET PO SCH (09:08)
[2021-09-09] MEDS: PANTOPRAZOLE 40 MG TABLET PO SCH (09:08)
[2021-09-09] MEDS: amLODIPine 10 MG TABLET PO SCH (09:08)
[2021-09-09] MEDS: INSULIN GLARGINE 100 UNIT/ML SUBCUT SCH (09:09)
[2021-09-09] MEDS: INSULIN LISPRO 100 UNIT/ML SUBCUT SCH ×3 (09:10→17:32)
[2021-09-09] MEDS: TRESIBA FLEXTOUCH SUBCUT SCH (22:40)
[2021-09-10] MEDS: HYDROmorphone 1 MG/1 ML SYRINGE IV PRN ×7 (04:01→23:25)
[2021-09-10] MEDS: METHADONE 10 MG TABLET PO SCH ×3 (05:28→21:00)
[2021-09-10] MEDS: AMPICILLIN/SULBACTAM 3,000 MG in SODIUM CHLORIDE 0.9% 100 ML IV SCH ×3 (05:28→20:59)
[2021-09-10] MEDS: MULTIVITAMIN (CENTRUM) TABLET PO SCH (10:06)
[2021-09-10] MEDS: DAPAGLIFLOZIN 10 MG TABLET PO SCH (10:06)
[2021-09-10] MEDS: NYSTATIN 500,000 UNIT/5 ML UDCUP PO SCH ×4 (10:06→21:01)
[2021-09-10] MEDS: sitaGLIPtin 100 MG TABLET PO SCH (10:07)
[2021-09-10] MEDS: levETIRAcetam 500 MG TABLET PO SCH ×2 (10:07→20:59)
[2021-09-10] MEDS: CHOLECALCIFEROL 5,000 UNIT TABLET PO SCH (10:07)
[2021-09-10] MEDS: amLODIPine 10 MG TABLET PO SCH (10:07)
[2021-09-10] MEDS: PANTOPRAZOLE 40 MG TABLET PO SCH (10:07)
[2021-09-10] MEDS ORDERED: diphenhydrAMINE 2% CREAM 28 GM TUBE TOP PRN (10:14)
[2021-09-10] MEDS: TRESIBA FLEXTOUCH SUBCUT SCH ×2 (11:50→21:00)
[2021-09-10] MEDS: INSULIN LISPRO 100 UNIT/ML SUBCUT SCH ×3 (11:50→17:40)
[2021-09-11] MEDS: AMPICILLIN/SULBACTAM 3,000 MG in SODIUM CHLORIDE 0.9% 100 ML IV SCH ×3 (05:13→21:06)
[2021-09-11] MEDS: METHADONE 10 MG TABLET PO SCH ×3 (05:15→21:07)
[2021-09-11] MEDS: HYDROmorphone 1 MG/1 ML SYRINGE IV PRN ×6 (05:16→23:23)
[2021-09-11] MEDS: levETIRAcetam 500 MG TABLET PO SCH ×2 (09:28→21:06)
[2021-09-11] MEDS: DAPAGLIFLOZIN 10 MG TABLET PO SCH (09:28)
[2021-09-11] MEDS: MULTIVITAMIN (CENTRUM) TABLET PO SCH (09:28)
[2021-09-11] MEDS: sitaGLIPtin 100 MG TABLET PO SCH (09:29)
[2021-09-11] MEDS: PANTOPRAZOLE 40 MG TABLET PO SCH (09:29)
[2021-09-11] MEDS: CHOLECALCIFEROL 5,000 UNIT TABLET PO SCH (09:29)
[2021-09-11] MEDS: amLODIPine 10 MG TABLET PO SCH (09:29)
[2021-09-11 10:07] LABS: Calcium 8.9 MG/DL (8.5-10.1); Osmolality,Calculated 268.1 MOS/KG (273-304); Potassium 4.1 MMOL/L (3.5-5.1)
[2021-09-11] MEDS: NYSTATIN 500,000 UNIT/5 ML UDCUP PO SCH ×4 (11:10→21:13)
[2021-09-11] MEDS: INSULIN LISPRO 100 UNIT/ML SUBCUT SCH ×3 (11:10→17:26)
[2021-09-11] MEDS: TRESIBA FLEXTOUCH SUBCUT SCH ×2 (11:10→21:19)
[2021-09-11] MEDS: GENTAMICIN IV SCH (15:43)
[2021-09-11] MEDS: SODIUM CHLORIDE 0.9% IV SCH (15:43)
[2021-09-12] MEDS: HYDROmorphone 1 MG/1 ML SYRINGE IV PRN ×8 (02:39→21:25)
[2021-09-12] MEDS: AMPICILLIN/SULBACTAM 3,000 MG in SODIUM CHLORIDE 0.9% 100 ML IV SCH ×3 (05:24→21:20)
[2021-09-12] MEDS: METHADONE 10 MG TABLET PO SCH ×3 (05:25→21:21)
[2021-09-12 05:41] LABS: Calcium 9.2 MG/DL (8.5-10.1); Potassium 4.3 MMOL/L (3.5-5.1)
[2021-09-12] MEDS: INSULIN LISPRO 100 UNIT/ML SUBCUT SCH ×3 (07:36→16:08)
[2021-09-12] MEDS: sitaGLIPtin 100 MG TABLET PO SCH ×2 (07:56→08:59)
[2021-09-12] MEDS: levETIRAcetam 500 MG TABLET PO SCH ×3 (07:57→21:21)
[2021-09-12] MEDS: amLODIPine 10 MG TABLET PO SCH ×2 (07:57→08:59)
[2021-09-12] MEDS: DAPAGLIFLOZIN 10 MG TABLET PO SCH ×2 (07:57→08:59)
[2021-09-12] MEDS: CHOLECALCIFEROL 5,000 UNIT TABLET PO SCH ×2 (07:57→09:00)
[2021-09-12] MEDS: MULTIVITAMIN (CENTRUM) TABLET PO SCH ×2 (07:57→08:59)
[2021-09-12] MEDS: PANTOPRAZOLE 40 MG TABLET PO SCH ×2 (07:57→09:00)
[2021-09-12] MEDS: TRESIBA FLEXTOUCH SUBCUT SCH ×2 (08:02→21:53)
[2021-09-12] MEDS: NYSTATIN 500,000 UNIT/5 ML UDCUP PO SCH ×4 (08:59→21:53)
[2021-09-12] MEDS: GENTAMICIN IV SCH (13:54)
[2021-09-12] MEDS: SODIUM CHLORIDE 0.9% IV SCH (13:54)
[2021-09-13] MEDS: HYDROmorphone 1 MG/1 ML SYRINGE IV PRN ×3 (00:05→06:03)
[2021-09-13] MEDS: AMPICILLIN/SULBACTAM 3,000 MG in SODIUM CHLORIDE 0.9% 100 ML IV SCH ×2 (05:59→18:08)
[2021-09-13] MEDS: METHADONE 10 MG TABLET PO SCH ×3 (06:04→21:31)
[2021-09-13] MEDS ORDERED: propofoL 200 MG/20 ML VIAL IV ONE (06:47)
[2021-09-13] MEDS ORDERED: LIDOCAINE 2% 5 ML VIAL ONE (06:47)
[2021-09-13] MEDS ORDERED: SUCCINYLCHOLINE 200 MG/10 ML VIAL ONE (06:47)
[2021-09-13] MEDS ORDERED: MIDAZOLAM 2 MG/2 ML VIAL ONE (06:47)
[2021-09-13] MEDS ORDERED: fentaNYL 250 MCG/5 ML VIAL ONE (06:48)
[2021-09-13] MEDS ORDERED: SEVOFLURANE 1 UNIT/15 MINUTE INH ONE ×6 (06:52→08:57)
[2021-09-13] MEDS ORDERED: PHENYLEPHRINE 10 MG/1 ML VIAL IV ONE (07:25)
[2021-09-13] MEDS ORDERED: LACTATED RINGERS 1,000 ML IV SCH (07:30)
[2021-09-13] MEDS ORDERED: SODIUM CHLORIDE 0.9% 100 ML IV ONE (07:36)
[2021-09-13] MEDS ORDERED: ONDANSETRON 4 MG/2 ML VIAL ONE (07:54)
[2021-09-13] MEDS ORDERED: LACTATED RINGERS 1,000 ML IV ONE (08:24)
[2021-09-13] MEDS ORDERED: HYDROmorphone 1 MG/1 ML SYRINGE ONE (08:27)
[2021-09-13] MEDS ORDERED: LIDOCAINE 1% 5 ML VIAL ONE (09:03)
[2021-09-13] MEDS ORDERED: DEXAMETHASONE 4 MG/1 ML VIAL ONE (09:03)
[2021-09-13] MEDS ORDERED: BUPIVACAINE MPF 0.25% 30 ML VIAL ONE (09:03)
[2021-09-13] MEDS ORDERED: MEPERIDINE 25 MG/1 ML VIAL ONE (09:26)
[2021-09-13] MEDS ORDERED: HYDROmorphone 1 MG/1 ML SYRINGE IV ONE (09:27)
[2021-09-13] MEDS ORDERED: MEPERIDINE 25 MG/1 ML VIAL IV ONE (09:29)
[2021-09-13] MEDS: INSULIN LISPRO 100 UNIT/ML SUBCUT SCH ×3 (10:38→18:10)
[2021-09-13] MEDS: MULTIVITAMIN (CENTRUM) TABLET PO SCH (10:38)
[2021-09-13] MEDS: CHOLECALCIFEROL 5,000 UNIT TABLET PO SCH (10:39)
[2021-09-13] MEDS: NYSTATIN 500,000 UNIT/5 ML UDCUP PO SCH ×3 (10:39→21:31)
[2021-09-13] MEDS: amLODIPine 10 MG TABLET PO SCH (10:57)
[2021-09-13] MEDS: PANTOPRAZOLE 40 MG TABLET PO SCH (10:57)
[2021-09-13] MEDS: sitaGLIPtin 100 MG TABLET PO SCH (10:57)
[2021-09-13] MEDS: levETIRAcetam 500 MG TABLET PO SCH ×2 (10:57→21:30)
[2021-09-13] MEDS: DAPAGLIFLOZIN 10 MG TABLET PO SCH (10:57)
[2021-09-13] MEDS: TRESIBA FLEXTOUCH SUBCUT SCH ×2 (11:00→21:41)
[2021-09-13] MEDS ORDERED: NALOXONE 0.4 MG/ML VIAL IV PRN (11:39)
[2021-09-13] MEDS ORDERED: GLUCAGON 1 MG VIAL IM PRN (11:42)
[2021-09-13] MEDS ORDERED: DEXTROSE 50% 25 GM/50 ML VIAL IV PRN (11:42)
[2021-09-13] MEDS: HYDROmorphone PCA 30 MG/30 ML SYRINGE IV SCH (12:56)
[2021-09-13] MEDS: METHOCARBAMOL 750 MG TABLET PO PRN (13:26)
[2021-09-13] MEDS: GABAPENTIN 100 MG CAPSULE PO SCH ×2 (15:05→21:30)
[2021-09-13] MEDS: GENTAMICIN IV SCH (15:06)
[2021-09-13] MEDS: SODIUM CHLORIDE 0.9% IV SCH (15:06)
[2021-09-13] MEDS: LACTATED RINGERS 1,000 ML IV SCH (21:31)
[2021-09-13] MEDS: diphenhydrAMINE CAP 25 MG CAPSULE PO PRN (21:31)
[2021-09-14] MEDS: AMPICILLIN/SULBACTAM 3,000 MG in SODIUM CHLORIDE 0.9% 100 ML IV SCH ×3 (01:04→17:35)
[2021-09-14] MEDS: METHOCARBAMOL 750 MG TABLET PO PRN ×3 (03:02→18:02)
[2021-09-14 05:23] LABS: Basophils % 0.2 % (0.0-0.8); Eosinophils # 0.1 10*3/uL (0.0-0.87); Eosinophils % 0.5 % (0.00-10.9); Hematocrit 27.8 VOL% (42.0-52.0); Hemoglobin 8.5 GM/DL (14.0-18.0); Immature Granulocytes % 0.5 %; Immature Granulocytes Absolute 0.06 #; Lymphocytes # 2.2 10*3/uL (1.4-4.0); Lymphocytes % 18.9 % (21.2-54.2); Mean Corpuscular HGB Conc 30.6 GM/DL (32-36); Mean Corpuscular Volume 78.5 FL (87-102); Mean Platelet Volume 8.5 FL (9.6-12.0); Monocytes # 0.8 10*3/uL (0.11-0.8); Monocytes % 6.8 % (1.7-12.7); Neutrophils % 73.1 % (38.7-73.9); Platelet Count 553 T/CUMM (130-400); Red Blood Count 3.54 MC/CUMM (3.8-5.5); Red Cell Distribution Width 15.2 % (9.3-17.3); White Blood Count 11.6 T/CUMM (4-12)
[2021-09-14 05:36] LABS: Calcium 9.3 MG/DL (8.5-10.1); Osmolality,Calculated 267.4 MOS/KG (273-304); Potassium 3.9 MMOL/L (3.5-5.1)
[2021-09-14] MEDS: METHADONE 10 MG TABLET PO SCH ×3 (05:50→21:54)
[2021-09-14] MEDS: diphenhydrAMINE CAP 25 MG CAPSULE PO PRN ×3 (05:51→18:58)
[2021-09-14] MEDS: DAPAGLIFLOZIN 10 MG TABLET PO SCH (08:16)
[2021-09-14] MEDS: INSULIN LISPRO 100 UNIT/ML SUBCUT SCH ×3 (08:16→16:20)
[2021-09-14] MEDS: CHOLECALCIFEROL 5,000 UNIT TABLET PO SCH (08:16)
[2021-09-14] MEDS: amLODIPine 10 MG TABLET PO SCH (08:16)
[2021-09-14] MEDS: GABAPENTIN 100 MG CAPSULE PO SCH ×3 (08:16→21:54)
[2021-09-14] MEDS: PANTOPRAZOLE 40 MG TABLET PO SCH (08:16)
[2021-09-14] MEDS: sitaGLIPtin 100 MG TABLET PO SCH (08:16)
[2021-09-14] MEDS: MULTIVITAMIN (CENTRUM) TABLET PO SCH (08:16)
[2021-09-14] MEDS: levETIRAcetam 500 MG TABLET PO SCH ×2 (08:16→21:53)
[2021-09-14] MEDS: NYSTATIN 500,000 UNIT/5 ML UDCUP PO SCH ×5 (09:13→21:55)
[2021-09-14] MEDS: TRESIBA FLEXTOUCH SUBCUT SCH ×2 (09:16→21:54)
[2021-09-14] MEDS ORDERED: TUBERCULIN SKIN TEST 0.1 ML SYRINGE INTRADERM ONE (11:30)
[2021-09-14] MEDS: SODIUM CHLORIDE 0.9% IV SCH (16:28)
[2021-09-14] MEDS: GENTAMICIN IV SCH (16:28)
[2021-09-14] MEDS: LACTATED RINGERS 1,000 ML IV SCH (18:38)
[2021-09-15] MEDS: AMPICILLIN/SULBACTAM 3,000 MG in SODIUM CHLORIDE 0.9% 100 ML IV SCH ×2 (00:07→08:11)
[2021-09-15] MEDS: diphenhydrAMINE CAP 25 MG CAPSULE PO PRN ×2 (06:04→11:18)
[2021-09-15] MEDS: METHADONE 10 MG TABLET PO SCH ×2 (06:05→13:46)
[2021-09-15] MEDS: DAPAGLIFLOZIN 10 MG TABLET PO SCH (08:15)
[2021-09-15] MEDS: CHOLECALCIFEROL 5,000 UNIT TABLET PO SCH (08:16)
[2021-09-15] MEDS: levETIRAcetam 500 MG TABLET PO SCH (08:16)
[2021-09-15] MEDS: MULTIVITAMIN (CENTRUM) TABLET PO SCH (08:16)
[2021-09-15] MEDS: amLODIPine 10 MG TABLET PO SCH (08:16)
[2021-09-15] MEDS: PANTOPRAZOLE 40 MG TABLET PO SCH (08:16)
[2021-09-15] MEDS: sitaGLIPtin 100 MG TABLET PO SCH (08:16)
[2021-09-15] MEDS: GABAPENTIN 100 MG CAPSULE PO SCH (08:16)
[2021-09-15] MEDS: INSULIN LISPRO 100 UNIT/ML SUBCUT SCH ×2 (08:43→13:47)
[2021-09-15] MEDS: TRESIBA FLEXTOUCH SUBCUT SCH (08:43)
[2021-09-15] MEDS: NYSTATIN 500,000 UNIT/5 ML UDCUP PO SCH ×2 (10:37→13:08)
[2021-09-15 12:17] VITALS: BP 157/74
[2021-09-15] MEDS: HYDROmorphone PCA 30 MG/30 ML SYRINGE IV SCH (13:06)
[2021-09-15] MEDS: GENTAMICIN IV SCH (14:33)
[2021-09-15] MEDS: SODIUM CHLORIDE 0.9% IV SCH (14:33)
== END 2021-09-15 14:20 | DRG 617 ==
LOC: N.3E
PROVIDERS: ADMIT Surgery; ATTEND Surgery